=== PATIENT | female | born 1935 | race Caucasian/White ===

== ENCOUNTER 2024-11-23 15:10 | Outpatient (CLI) | payer MEDICARE, SELFPAY ==
[2024-11-23 13:59] LABS: Abs Immature Grans 0.07 10^3/uL (0.0-0.06); Absolute Basophil Count 0.03 10^3/uL (0.0-0.2); Absolute Eosinophil Count 0.08 10^3/uL (0.0-0.7); Absolute Lymphocyte Count 1.24 10^3/uL (1.2-3.4); Absolute Monocyte Count 0.71 10^3/uL (0.1-0.8); Absolute Neutrophil Count 8.46 10^3/uL (1.2-6.7); Basophils % 0.3 %; Eosinophils % 0.8 %; HCT 33.5 % (36.0-46.0); HGB 10.5 g/dL (11.2-15.7); Immature Grans % 0.7 %; Lymphocytes % 11.7 %; MCH 25.7 pg (27.0-33.0); MCHC 31.3 % (32.0-36.0); MCV 82 fL (80-95); MPV 8.5 fL (8.0-11.0); Monocytes % 6.7 %; Neutrophils % 79.8 %; Platelet Count 452 10^3/uL (130-400); RBC 4.08 10^6/uL (3.93-5.22); RDW 14.1 % (11.7-14.6); RDW-SD 41.6 fL; WBC 10.59 10^3/uL (4.4-10.8)
[2024-11-23 14:20] LABS: ALT 14 U/L (14-59); AST 23 U/L (15-37); Albumin 2.3 g/dL (3.4-5.0); Alkaline Phosphatase 81 U/L (46-116); Anion Gap 4.5 mmol/L (3-11); BUN 12 mg/dL (7-18); Bilirubin, Total 0.21 mg/dL (0.2-1.0); CO2 28.5 mmol/L (21.0-32.0); CREATININE 0.9 mg/dL (0.55-1.02); Calcium 8.8 mg/dL (8.5-10.1); Chloride 107 mmol/L (98-107); Estimated GFR 61.87 (mL/min/1.73m2); Glucose 103 mg/dL (74-106); Potassium 4.2 mmol/L (3.5-5.1); Sodium 140 mmol/L (136-145); Total Protein 7.4 g/dL (6.4-8.2)
--- OUTSIDE RECORDS SUMMARY | 2024-11-23 15:20 | XMS_ITS | Continuity of Care Document ---
Author Organization [facility] Address [address] [place] [address] Care Team Providers Care Lease Administration Analyst Name Role Phone Tracie Pandey Primary Care Physician [phone] Kaylee Couch Unavailable Unavailable Encounter [facility] [id number] Date(s): 11/07/24 - 11/07/[address] [address]- Discharge Disposition: Home or Self Care Attending Physician: Sukumar Sam DO Admitting Physician: Sukumar Sam DO Referring Physician: Tracie Pandey Allergies, Adverse Reactions, Alerts Substance Criticality Severity Reaction Reaction Severity Status Latex Unable to assess criticality Unknown Rash Active Assessment and Plan Diagnostic Tests Pending * Surgical Pathology [facility] 11/07/24 Future Scheduled Tests Laboratory* CBC w/ Diff 11/01/24 * ABO/Rh 11/01/24 Functional Status 11/07/24 COVID-19 Screening None Family Member Travel History No recent t ravel Recent Travel History No recent travel Medications Centrum Silver Women 50+ oral tablet 1 tab, Oral, Daily, 0 Refill(s) Start Date: 10/31/24 Status: Ordered docusate sodium 50 mg oral capsule 50 mg = 1 cap, Oral, BID, PRN as needed for constipation, # 180 cap, 0 Refill(s) Start Date: 10/31/24 Status: Ordered Emergen-C 1 tab, Chewed, Daily, 0 Refill(s) Start Date: 10/31/24 Status: Ordered erythromycin 0.5% ophthalmic ointment 1 caro, Eye-Both, QID, # 3.5 g, 0 Refill(s) Start Date: 10/27/24 Stop Date: 11/01/24 Status: Ordered gabapentin 100 mg oral capsule 300 mg = 3 cap, Oral, TID, # 120 cap, 0 Refill(s) Start Date: 10/27/24 Status: Ordered Lidoderm 5% topical film 1 patches, Topical, Daily, remove patches after 12 hours, # 30 patches, 0 Refill(s) Start Date: 10/27/24 Status: Ordered lysine 1000 mg oral tablet 1,000 mg = 1 tab, Oral, Daily, # 60 tab, 0 Refill(s) Start Date: 10/31/24 Status: Ordered MacuHealth MacuHealth, 1 tab, Oral, Daily, 0 Refill(s) Start Date: 10/31/24 Status: Ordered magnesium oxide 400 mg oral capsule 400 mg = 1 cap, Oral, Daily, # 75 cap, 0 Refill(s) Start Date: 10/31/24 Status: Ordered morphine 0.25, Oral, every 4 hr, PRN as needed for pain, 0 Refill(s) Start Date: 10/31/24 Status: Ordered polyethylene glycol 3350 oral powder for reconstitution 17 g, Oral, Daily, # 510 g, 0 Refill(s) Start Date: 10/31/24 Status: Ordered senna 8.6 mg oral tablet 17.2 mg = 2 tab, Oral, every night at bedtime, PRN as needed for constipation, # 20 tab, 0 Refill(s) Start Date: 10/27/24 Status: Ordered Turmeric 500 mg oral capsule 500 mg = 1 cap, Oral, Daily, # 60 cap, 0 Refill(s) Start Date: 10/31/24 Status: Ordered Vitamin D3 125 mcg (5000 intl units) oral tablet, disintegrating 125 mcg = 1 tab, Oral, Daily, 0 Refill(s) Start Date: 10/31/24 Status: Ordered Problem List Condition Confirmation Course Effective Dates Status Health St atus Informant Female bladder prolapse Confirmed Active HTN (hypertension) Confirmed Active Ruptured lumbar disc Confirmed Active Procedures Procedure Date Related Diagnosis Body Site Status Procedure on back 11/21/86 Complet ed Bilateral tubal ligation 11/21/73 Completed Tonsillectomy 11/21/49 Completed Vital Signs Most recent to oldest [Reference Range]: 1 Peripheral Pulse Rate [60-100 bpm] 74 bp m (11/07/24 8:10 AM) Blood Pressure [90-120/60-80 mmHg] 137/6 5mmHg *HI* (11/07/24 8:10 AM) Weight Measured (lbs) 134.989 lb (11/07/24 8:10 AM) Weight Dosing 61.230 kg (11/07/24 8:10 AM) [place] Body Weight Calculated 45.5 kg (11/07/24 8:10 AM) Height/Length Measured (inches) 57.87 in ch (11/07/24 8:10 AM) BSA Measured 1.58 m2 (11/07/24 8:10 AM) Body Mass Index 28.34 kg/m2 (11/07/24 8:10 AM) Height 147 cm (11/07/24 8:10 AM) Weight 61.23 kg (11/07/24 8:10 AM) Social History Social History Type Response Tobacco Never tobacco user T obacco Use:. Sex Female Sex Representation Female (finding) Physician Outpatient Note * Sukumar Sam DO: PERFORM Event Display: Office Clinic Note Physician Authored Date: [id number] FLORA STAPLES :1935 Age:89 years Sex:Female Visit Date:11/07/2024 Primary Care Physician: Tracie Pandey Chief Complaint breast biopsy History of Present Illness Over the past week have had multiple phone conversations with the patient's daughter??about the fungating mass in her mother's right breast.?? I had spoken with radiation oncology as a possibility asan alternative to surgery for this lesion.?? I did this because after getting the CAT scan and discussing it with radiology??their feeling was that??it did go into muscle??and possibly into the bone at 1 point.?? I talked to the radiation oncology who thought that??it would be a good idea to radiate this area.?? The concern was is the patient had refused seeing oncology in the past.?? My feeling was as if she??was going to refuse to see radiation oncology then we should just proceed with surgery but with the realization that we may not be able to get around the tumor??and??that would mean thegraft would not take and she may end up with an open wound.?? After discussing this with the daughter a couple of times we were??under the understanding that we would??proceed with surgery??today??but then the daughter called yesterday after discussing it??with her mother and??thought they would??want to entertain the radiation option.?? I had her come into the office today so I could do a biopsyas radiation oncology said they wanted to have a biopsy done prior to??proceeding??with any treatment. Physical Exam Vitals & Measurements HR:??74??(Peripheral)?? BP:??137/65?? SpO2:??97%?? HT:??147??cm?? WT:??61.23??kg?? BMI:??28.34?? BSA:??1.58?? Again she has the fungating mass with necrotic center??that about the size of a softball on the medial aspect of her right breast.?? I prepped the skin with Betadine along the edge where it appeared that she had viable tissue.?? I anesthetized with 2 cc??of 1% lidocaine and use 11 blade scalpel to take 3 small pieces of tissue in the area and sent it to pathology.?? Bleeders are cauterized and a dressing was placed on top. Assessment/Plan I do think that this would be the best option for treatment.?? Originally I was going to proceed with surgery because she??sounded like she was going to refuse radiation therapy. ??Now she says she is quite happy to go through with radiation. ??As I told her if the radiation does not work then we can certainly do surgery at that point?? if it fails.I will set up the??referral for radiation therapy at [facility] for palliative??therapy.?? Letter??has been sent. Problem List/Past Medical History Ongoing Female bladder prolapse HTN (hypertension) Ruptured lumbar disc Historical No qualifying data Procedure/Surgical History ???Procedure on back (11/22/1986)???Bilateral tubal ligation (11/22/1973)???Tonsillectomy (11/22/1949) Medications Centrum Silver Women 50+ oral tablet, 1 tab, Oral, Daily docusate sodium 50 mg oral capsule, 50 mg= 1 cap, Oral, BID, PRN Emergen-C, 1 tab, Chewed, Daily erythromycin 0.5% ophthalmic ointment, 1 caro, Eye-Both, QID gabapentin 100 mg oral capsule, 300 mg= 3 cap, Oral, TID Lidoderm 5% topical film, 1 patches, Topical, Daily lysine 1000 mg oral tablet, 1000 mg= 1 tab, Oral, Daily MacuHealth, 1 tab, Oral, Daily magnesium oxide 400 mg oral capsule, 400 mg= 1 cap, Oral, Daily morphine, 0.25, Oral, every 4 hr, PRN polyethylene glycol 3350 oral powder for reconstitution, 17 g, Oral, Daily senna 8.6 mg oral tablet, 17.2 mg= 2 tab, Oral, every night at bedtime, PRN Turmeric 500 mg oral capsule, 500 mg= 1 cap, Oral, Daily Vitamin D3 125 mcg (5000 intl units) oral tablet, disintegrating, 125 mcg= 1 tab, Oral, Daily Allergies Latex??(Rash) Social History Alcohol 1-2 times per year Electronic Cigarette/Vaping Electronic Cigarette Use: Never. Substance Use Never Tobacco Never tobacco user Tobacco Use:. Electronically Signed on 11/07/2024 08:58 EST Sukumar Sam DO Patient Care team information Care Team Personnel Name: Tracie Pandey Position: No Access Member Role: Primary Care Physician Address: [address] [place] [address] Name: Kaylee Couch Position: Ambulatory - Trade Clerk Member Role: Trade Clerk Care Team Related Persons Name: HANS WOOD Insurance Providers Guarantor name: FLORA STAPLES Health Plan Information #: 1 Payer: MED[place]ARE [place] Member Number: [id number] Policy Number: NA Health Plan Information #: 2 Payer: MED[place]ARE [place] Member Number: [id number] Policy Number: NA
--- OUTSIDE RECORDS SUMMARY | 2024-11-23 15:20 | XMS_ITS | Encounter Summary ---
Author Organization [facility] Address [facility] [place] [address] Care Team Providers Care Larry Operator Name Role Phone Tracie Pandey APRN Primary Care Provider [phone] Encounter Details Date Type Department Care Team (Late st Contact Info) Description 11/23/2024 Orders Only [place]ology [place] [id number] Freddy Castillo MD [facility] [place] [address] Social History Tobacco Use Types Packs/Day Years Used Date Smoking Tobacco: Never Smokeless Tobacco: Never Alcohol Use Standard Drinks/Week Comments Yes 0 (1 standard drink = 0.6 oz pur e alcohol) 1-2 times/year [facility] Utilities Answer Date Recorded In the past 12 months has th e electric, gas, oil, or water company threatened to shut off services in your home? No 11/20/2024 Hunger Vital Sign Answer Date Recorded Within the past 12 months, y ou worried that your food would run out before you got the money to buy more. Never true 11/20/20 24 Within the past 12 months, t he food you bought just didn't last and you didn't have money to get more. Never true 11/20/2024 PRAPARE - Transportation Answer Date Re corded In the past 12 months, has l ack of transportation kept you from medical appointments or from getting medications? No 10/24 In the past 12 months, has l ack of transportation kept you from meetings, work, or from getting things needed for daily living? No 11/20/2024 Housing Stability Vital Sign Answer Gideon e Recorded In the last 12 months, was t here a time when you were not able to pay the mortgage or rent on time? No 11/20/2024 Number of Times Moved in the Last Year Not on fi le 11/20/2024 At any time in the past 12 m [facility], were you homeless or living in a penitentiary (including now)? No 11/20/2024 Sex and Gender Information Value Date Recorded Sex Assigned at Not on file Gender Identity Not on file Sexual Orientation Not on file documented as of this encounter Plan of Treatment Upcoming Encounters Date Type Department Care Team (Late st Contact Info) Description 11/27/2024 11:00 AM EST Scheduled View Only Radiation Oncology at [address] [phone] 11/28/2024 5:00 PM EST Scheduled View Only Radiation Oncology at [address] [phone] 11/29/2024 5:15 PM EST Scheduled View Only Radiation Oncology at [address] [phone] 11/30/2024 10:30 AM EST Scheduled View Only Radiation Oncology at [address] [phone] 12/01/2024 11:00 AM EST Scheduled View Only Radiation Oncology at [address] [phone] 12/04/2024 5:00 PM EST Scheduled View Only Radiation Oncology at [address] [phone] 12/05/2024 1:30 PM EST Scheduled View Only Radiation Oncology at [address] [phone] 12/06/2024 5:00 PM EST Scheduled View Only Radiation Oncology at [address] [phone] 12/07/2024 4:45 PM EST Scheduled View Only Radiation Oncology at [address] [address] 12/08/2024 5:00 PM EST Scheduled View Only Radiation Oncology at [address] [phone] 12/11/2024 4:45 PM EST Scheduled View Only Radiation Oncology at [address] [phone] 12/12/2024 4:45 PM EST Scheduled View Only Radiation Oncology at [address] [phone] 12/13/2024 4:45 PM EST Scheduled View Only Radiation Oncology at [address] [phone] 12/14/2024 2:30 PM EST Office Visit Hematology/Oncology at [address] [phone] Freddy Castillo MD [facility] [place] [address] 12/14/2024 4:45 PM EST Scheduled View Only Radiation Oncology at [address] [phone] 12/15/2024 1:30 PM EST Scheduled View Only Radiation Oncology at [address] [phone] documented as of this encounter Visit Diagnoses Not on filedocumented in this encounter Care Teams Larry Operator Relationship Specialty Start Date End Date Tracie Pandey APRN [address] [place] [address] PCP - General Family Medicine 08/29/15 documented as of this encounter
--- OUTSIDE RECORDS SUMMARY | 2024-11-23 15:20 | XMS_ITS | Encounter Summary ---
Author Organization [facility] Address [facility] [place] [address] Care Team Providers Care Take Out Waiter/Waitress Name Role Phone Tracie Pandey APRN Primary Care Provider [phone]- [phone] Encounter Details Date Type Department Care Team (Late st Contact Info) Description 11/23/2024 12:00 PM EST Office Visit Hematology/Oncology at [address] [phone] [facility] [address] [place] [address] Arrived Social History Tobacco Use Types Packs/Day Years Used Date Smoking Tobacco: Never Smokeless Tobacco: Never Alcohol Use Standard Drinks/Week Comments Yes 0 (1 standard drink = 0.6 oz pur e alcohol) 1-2 times/year [facility] Utilities Answer Date Recorded In the past 12 months has e electric, gas, oil, or water company [...] any time in the past 12 m onths, were you homeless or living in a correction (including now)? No 11/20/2024 Sex and Gender Information Value Date Recorded Sex Assigned at Not on file Gender Identity Not on file Sexual Orientation Not on file documented as of this encounter Plan of Treatment Upcoming Encounters Date Type Department Care Team (Late st Contact Info) Description 11/27/2024 11:00 AM EST Scheduled View Only Radiation Oncology at [address] [phone] 11/28/2024 5:00 PM EST Scheduled View Only Radiation Oncology at [address] [phone] 11/29/2024 5:15 PM EST Scheduled View Only Radiation Oncology at [address] [phone] 11/30/2024 10:30 AM EST Scheduled View Only Radiation Oncology at [address] [phone] 12/01/2024 11:00 AM EST Scheduled View Only Radiation Oncology at [address] [phone] 12/04/2024 5:00 PM EST Scheduled View Only Radiation Oncology at [address] [phone] 12/05/2024 1:30 PM EST Scheduled View Only Radiation Oncology at [address] [phone] 12/06/2024 5:00 PM EST Scheduled View Only Radiation Oncology at [address] [phone] 12/07/2024 4:45 PM EST Scheduled View Only Radiation Oncology at [address] [phone] 12/08/2024 5:00 PM EST Scheduled View Only Radiation Oncology at [address] [phone] 12/11/2024 4:45 PM EST Scheduled View Only Radiation Oncology at [address] [phone] 12/12/2024 4:45 PM EST Scheduled View Only Radiation Oncology at [address] [phone] 12/13/2024 4:45 PM EST Scheduled View Only Radiation Oncology at [address] [phone] 12/14/2024 2:30 PM EST Office Visit Hematology/Oncology at [address] [phone] Freddy Castillo MD [facility] [place] [address] 12/14/2024 4:45 PM EST Scheduled View Only Radiation Oncology at [address] [phone] 12/15/2024 1:30 PM EST Scheduled View Only Radiation Oncology at [address] [phone] documented as of this encounter Visit Diagnoses Not on filedocumented in this encounter Care Teams Take Out Waiter/Waitress Relationship Specialty Start Date End Date Tracie Pandey APRN [address] [place] [address] PCP - General Family Medicine 08/29/15 documented as of this encounter
--- OUTSIDE RECORDS SUMMARY | 2024-11-23 15:20 | XMS_ITS | Continuity of Care Document ---
Author Organization [facility] Address [address] [place] [address] Care Team Providers Care Laser Beam Machine Operator Name Role Phone Tracie Pandey Primary Care Physician Encounter [facility] [id number] Date(s): 10/31/24 - 10/31/[address] [address]- Encounter Diagnosis Breast cancer, right breast(Discharge Diagnosis) - 10/31/24 Discharge Disposition: Home or Self Care Attending Physician: Sukumar Sam DO Admitting Physician: Sukumar Sam DO Referring Physician: Sukumar Sam DO Allergies, Adverse Reactions, Alerts Substance Criticality Severity Reaction Reaction Severity Status Latex Unable to assess criticality Unknown Rash Active Assessment and Plan Future Appointments Future Scheduled Tests Laboratory* Creatinine 11/01/24 Medications Centrum Silver Women 50+ oral tablet [...] tubal ligation 11/21/73 Completed Tonsillectomy 11/21/49 Completed Results Laboratory List Name Date Basic Metabolic Panel (BMP) 10/31/24 Most recent to oldest [Reference Range]: 1 BUN [8.0-23.0 mg/dL] 13.5 mg/dL (10/31/24 1:20 PM) Glucose Level [70-100 mg/dL] 110 mg/dL *HI* (10/31/24 1:20 PM) Potassium Level [3.5-5.0 mmol/L] 4.3 mmo l/L (10/31/24 1:20 PM) Sodium Level [136-145 mmol/L] 137 mmol/L (10/31/24 1:20 PM) Calcium Level [8.8-10.2 mg/dL] 8.8 mg/dL (10/31/24 1:20 PM) CO2 [22-29 mmol/L] 29 mmol/L (10/31/24 1:20 PM) eGFR Non-AA [>=60 mL/min/1.73 m2] 63 mL/ min/1.73 m2 (10/31/24 1:20 PM) eGFR AA [>=60 mL/min/1.73 m2] 76 mL/min/ 1.73 m2 (10/31/24 1:20 PM) Chloride Level [98-107 mmol/L] 100 mmol/ L (10/31/24 1:20 PM) BUN/Creat Ratio 16 ratio *NA* (10/31/24 1:20 PM) Creatinine Level [0.50-0.90 mg/dL] 0.86 mg/dL (10/31/24 1:20 PM) Anion Gap [5-15 mmol/L] 12 mmol/L (10/31/24 1:20 PM) Radiology Reports * Exam Date Time Procedure Performing Provider Status 10/31/24 2:[address] Chest w/ Contrast Jaz Martin; Alicia (Verified) Notes: (CT Chest w/ Contrast) Reason For Exam: Malignant neoplasm of unspecified site of right female breast CT Chest w/ Contrast EXAMINATION: CT Chest w/ Contrast CLINICAL HISTORY: Malignant neoplasm of unspecified site of right female breast TECHNIQUE: Helical CT of the chest after the intravenous administration of 100 cc of Omnipaque 350. Thin-section reconstructions as well as coronal and sagittal reformatted images were generated. COMPARISON: Right breast ultrasound 03/22/2024. Diagnostic mammogram 03/22/2024. FINDINGS: Pulmonary parenchyma: Lung nodules Airways: No central endobronchial abnormality. Pleura: No effusion or pneumothorax. Lymph nodes: Right axillary lymphadenopathy with largest lymph node measuring 3.9 x 2.4 cm. Left axillary lymphadenopathy with largest lymph node measuring 1.4 cm (series 3, image 17). Additional enlarged lymph nodes also measuring 14 mm (series 3, image 22). Chest wall: Large right breast mass measuring 13.2 x 10.2 x 9 which abuts pectoralis muscles with invasion of the cutaneous surface which contains foci of air. There is skin thickening in the right mid chest which extends inferiorly particularly overlying the right greater than left breasts. There is anasarca. Heart and vasculature: Qualitative left atrial enlargement. There is mild coronary artery calcification. No pericardial effusion. Normal caliber of the thoracic aorta. Other mediastinal structures: No significant findings. Upper abdomen: There is a subcentimeter hypodensity in the liver. Skeletal structures: Diffuse qualitative osteopenia. No suspicious osseous lesions. IMPRESSION: Large right breast mass containing air foci which may be secondary to necrosis and/or recent instrumentation. Bilateral axillary lymphadenopathy. Skin thickening overlying the right greater than left breasts, correlate with direct inspection. I have personally reviewed the image(s) and the resident's interpretation and agree with the findings, Wilian Loo MD at 10/31/2024 3:39 PM Thank you for letting us participate in the care of this patient. If you are a health care provider and have any questions regarding this report, please contact the number below. For patients who have questions please contact the health adult daycare coordinator that requested your imaging first. Final Dictated by: Lolis Arndt Dictated DT/TM: 10/31/2024 3:44 pm Signed by: Lolis Arndt Signed (Electronic Signature): 10/31/2024 2:41 pm Transcribed by: MASTER Social History Social History Type Response Tobacco Never tobacco user T obacco Use:. Sex Female Sex Representation Female (finding) Patient Care team information Care Team Personnel Name: Tracie Pandey Position: No Access Member Role: Primary Care Physician Address: [address] [place] [address] Care Team Related Persons Name: HANS WOOD Insurance Providers Guarantor name: FLORA STAPLES Health Plan Information #: 1 Payer: [employer] Member Number: [id number] Policy Number: NA Health Plan Information #: 2 Payer: [facility] [place] [employer] Member Number: [id number] Policy Number: NA
--- OUTSIDE RECORDS SUMMARY | 2024-11-23 15:20 | XMS_ITS | Encounter Summary ---
[place] [address] Care Team Providers Care Mill Worker Name Role Phone Tracie Pandey APRN Primary Care Provider [phone] Reason for Referral * Consultation (Routine) - Authorized Specialty Diagnoses / Procedures Referred By Contac t Referred To Contact Hematology and Oncology Diagnoses Malignant neoplasm of overlapping sites of breast in female, estrogen receptor negative, unspecified laterality Freddy Castillo MD [facility] [place] [address] [facility] [address] [place] [address] Referral ID Status Reason Start Date Expiration Date Visits Requested Visits Authorized [id number] Authorized Consult, Test & Treat 11/23/2024 11/23/2025 1 1 * Diagnostic Test (Routine) - Authorized Specialty Diagnoses / Procedures Referred By Contac t Referred To Contact Radiology Diagnoses Malignant neoplasm of overlapping sites of breast in female, estrogen receptor negative, unspecified laterality Procedures NM Bone Scan Whole Body Freddy Castillo MD [facility] [place] [address] Referral ID Status Reason Start Date Expiration Date Visits Requested Visits Authorized [id number] Authorized Specialty Service Requested 11/23/2024 05/23/2026 1 1 * Diagnostic Test (Routine) - Authorized Specialty Diagnoses / Procedures Referred By Contac t Referred To Contact Radiology Diagnoses Malignant neoplasm of overlapping sites of breast in female, estrogen receptor negative, unspecified laterality Procedures CT Abdomen & Pelvis wwo Contrast (Generic) Freddy Castillo MD [facility] [place] [address] Referral ID Status Reason Start Date Expiration Date Visits Requested Visits Authorized [id number] Authorized Specialty Service Requested 11/23/2024 05/23/2026 1 1 * Diagnostic Test (Routine) - Authorized Specialty Diagnoses / Procedures Referred By Contac t Referred To Contact Radiology Diagnoses Malignant neoplasm of overlapping sites of breast in female, estrogen receptor negative, unspecified laterality Procedures MRI Brain wwo Contrast (Generic) Freddy Castillo MD [facility] [place] [address] Referral ID Status Reason Start Date Expiration Date Visits Requested Visits Authorized [id number] Authorized Specialty Service Requested 11/23/2024 05/23/2026 1 1 Reason for Visit * Consultation (Routine) - Closed Specialty Diagnoses / Procedures Referred By Contac t Referred To Contact Hematology and Oncology Diagnoses Malignant neoplasm of upper-inner quadrant of right breast in female, estrogen receptor negative Priya Ellsi MD [facility] [place] [place] [address] [facility] [address] [place] [id number] Referral ID Status Reason Start Date Expiration Date V isits Requested Visits Authorized [id number] Closed Consult, Test & Treat 11/20/2024 11/20/2025 1 1 Encounter Details Date Type Department Care Team (Late st Contact Info) Description 11/23/2024 11:00 AM EST Office Visit Hematology/Oncology at [address] [phone] Freddy Castillo MD [facility] [place] [address] Manju Lee, [address] [place] [address] Malignant neoplasm of overlapping sites of breast in female, estrogen receptor negative, unspecified laterality Social History Tobacco Use Types Packs/Day Years Used Date Smoking Tobacco: Never Smokeless Tobacco: Never Alcohol Use Standard Drinks/Week Comments Yes 0 (1 standard drink = 0.6 oz pur e alcohol) 1-2 times/year [facility] Utilities Answer Date Recorded In the past [...] any time in the past 12 m [facility], were you homeless or living in a retirement (including now)? No 11/20/2024 Sex and Gender Information Value Date Recorded Sex Assigned at Not on file Gender Identity Not on file Sexual Orientation Not on file documented as of this encounter Last Filed Vital Signs Vital Sign Reading Time Taken Comments Blood Pressure 158/61 11/23/2024 10:53 AM EST Pulse 76 11/23/2024 10:53 AM EST Temperature 36.1 ??C (96.9 ??F) 11/23/2024 10:[address] Respiratory Rate 20 11/23/2024 10:53 AM EST Oxygen Saturation 100% 11/23/2024 10:53 AM EST Inhaled Oxygen Concentration - - Weight 60.6 kg (133 lb 9.6 oz) 11/23/2024 10:53 AM EST Height 144.8 cm (4' 9) 11/23/2024 10:53 AM EST Body Mass Index 28.91 11/23/2024 10:53 AM EST documented in this encounter Progress Notes * Freddy Castillo MD - 11/23/2024 11:00 AM EST Diagnosis: Right sided locally advanced triple negative breast cancer Chief Complaint: Right sided chest wall discomfort with a pain score of 5-7, ECOG performance status of 1 HPI: Dear colleague, It was my pleasure to see this patient in consultation on the medical oncology- breast service on 23 November 2024. As you recall this delightful 89-year-old female carries a past medical history noteworthy for hypertension. She has a longstanding history of lower back discomfort and is status post surgery to repair a disc. The patient presents with a breast mass that has been in place at least since August 2023. At that juncture she elected to pursue only imaging studies that included mammography and ultrasound revealing the presence of presumptive BI-RADS 5 locally advanced breast cancer. Thepatient's right sided mass lesion is now fungating considerably. [facility] but has since declined to pursue this approach. She would undergo a biopsy of the mass lesion revealing the presence of a triple negative breast cancer. The patient's breast cancer reveals multiple nodules and a large breast mass measuring at least 13.2 x 10.2 x 9 cm in greatest dimension. Imaging studies performed in mid 2023 revealed the mass at that time at approximately 6 cm. The patient reports worsening lumbar sacral spine discomfort she has also had some right lower extremity discomfort. She reports no other soft tissue masses. She denies any cephalgia or changes in visual acuity and no focal or lateralizing signs or symptoms. CT imaging studies of the chest revealed no evid ence of parenchymal pulmonary metastasis. However a small hypoattenuating lesion in the liver was of uncertain significance. The patient is utilizing as needed morphine for pain control which is generally well achieved. Her appetite is fair and she has lost a considerable amount of weight but cannot quantify the same. She rests often but is attempting to conduct her activities of daily living reas onably unencumbered. The mass in the breast is malodorous with significant secretions requiring constant dressing changes. No evidence of cellulitic/soft tissue infection is noted. Patient denies anycough dyspnea or chest discomfort outside of her breast mass. She had not had a mammogram in many years not recalling the last study. She entered menarche at age 14 menopause at approximately 52. Sheutilized oral contraceptive pills for 6 years. She had 7 live births and 3 miscarriages. Her first live was in her early 20s. The patient has what she believes to be perhaps 2 siblings with breast cancer. However the patient's memory is somewhat challenged. She denies any prior history of coronary artery disease or cerebrovascular disease. She has had no hospitalizations in the last 10 years. Interval history: She continues to use oral morphine as well as gabapentin [employer] for pain control.She states that this is generally well achieved. She reports no febrile complaints no shaking rigors or chills. She was seen by the radiation oncology group who have planned a course of palliative radiation to the right breast and chest wall beginning on 27 November 2024. She is seen today in clinic for discussions regarding appropriate directions and potential systemic disease control. PMH: Past Medical History: Diagnosis Date Breast cancer in female Female bladder prolapse HTN (hypertension) RLD (ruptured lumbar disc) Social History: Social History Socioeconomic History Marital status: Unknown Spouse name: Not on file Number of children: Not on file Years of education: Not on file Highest education level: Not on file Occupational History Not on file Tobacco Use Smoking status: Never Smokeless tobacco: Never Vaping Use Vaping status: Never Used Substance and Sexual Activity Alcohol use: Yes Comment: 1-2 times/year Drug use: Never Sexual activity: Not on file Other Topics Concern Not on file Social History Narrative Not on file Social Determinants of Health Financial Resource Strain: Not on file Food Insecurity: No Food Insecurity (11/20/2024) Hunger Vital Sign Worried About Running Out of Food in the Last Year: Never true Ran Out of Food in the Last Year: Never true Transportation Needs: No Transportation Needs (11/20/2024) PRAPARE - Transportation Lack of Transportation (Medical): No Lack of Transportation (Non-Medical): No Physical Activity: Not on file Intimate Partner Violence: Not on file Housing Stability: Unknown (11/20/2024) Housing Stability Vital Sign Unable to Pay for Housing in the Last Year: No Number of Times Moved in the Last Year: Not on file Homeless in the Last Year: No Family History: No family history on file. Allergies: Allergies Allergen Reactions Latex, Natural Rubber Medications: Medications 11/23/24 1116 Medication Sig Taking? docusate sodium (Colace) 50 mg capsule 50 mg 2 times daily as needed for Constipation. Yes gabapentin (Neurontin) 300 mg capsule Take 300 mg by mouth 3 times daily. Yes lidocaine (Lidoderm) 5% Adhesive Patch, Medicated Change on the skin every 24 hours. Apply 1 patch onto the skin daily. (leave on for 12 hours and remove for 12 hours) Yes Lysine 1,000 mg tablet Take by mouth daily. Yes magnesium oxide (Mag-Ox) 400 mg (241.3 mg magnesium) Tablet Take 400 mg by mouth daily. Yes morphine sulfate (MORPHINE ORAL) Take by mouth. Yes polyethylene glycoL (Miralax) 17 gram oral powder packet Take 17 g by mouth daily. Yes senna (Senokot) 8.6 mg tablet Take by mouth daily. Yes cholecalciferoL, Vitamin D3, (Vitamin D3) 125 mcg (5,000 unit) tablet Take by mouth daily. Yes multivitamin (THERAGRAN) Tablet Take 1 tablet by mouth daily. UNABLE TO FIND Emergen-C UNABLE TO FIND daily. [employer] TURMERIC ORAL Take by mouth. Review of Systems: 14 point review of systems is performed pertinent positives and negatives are addressed within the body of the history of present illness Constitutional: HEENT: Eyes: Respiratory: Cardiovascular: Gastrointestinal: Genitourinary: Musculoskeletal: Skin: Neurological: Hematological: Physical examination a generally well-appearing female in good spirits conversant and appropriate during the clinical interview stable vital signs blood pressure 158/61 apical rate 76 respirations 20temperature 36.1 HEENT the pharynx is clear there is no mucositis thrush or petechia neck supple noJVD bruit or thyromegaly chest clear to auscultation bilaterally heart regular rate and rhythm no S3 no wheezes rales or rhonchi abdomen soft nontender no masses no spleen tip no [place] megaly no shifting dullness or fluid wave no guarding or rebound positive bowel sounds in all 4 quadrants extremities no clubbing cyanosis or edema all jamar stations bilateral axillary adenopathy is noted greater than 3 cm on the right. Sclera anicteric palpebral conjunctiva are appropriately injected examinationof the breast bilaterally and chest wall revealed a fungating right sided breast mass with significant induration within the right breast as well as fungating changes nodularity within the skin malodo nahid secretions are also noted. Labs: Appointment on 11/21/2024 Component Date Value Ref Range Status WORKSTATION ID 11/21/2024 [id number] Final Pathology: No results found for: SURGFINALRPT Imaging: CT Rad Onc Chest Interp Only Narrative: EXAMINATION: CT RAD ONC CHEST INTERP ONLY CLINICAL HISTORY: 89 y/o f w/breast ca, R, cT4b cN2a cM1, stage IV. 10 cm ulcerated painful R breast mass. Patient declined surgery. C50.211, Malignant neoplasm of upper-inner quadrant of right female breast TECHNIQUE: Limited CT without the use of oral or IV contrast performed for the purposes of localization for radiation treatment. COMPARISON: Chest CT 10/31/2024 FINDINGS: New packing material with decreased low-attenuation within large ulcerated cavitary right breast mass. Persistent overlying skin thickening and haziness and reticulation in the subcutaneous fat. Stable bilateral axillary lymphadenopathy and subcentimeter supraclavicular lymph nodes. The heart is stable in size. There are coronary artery calcifications. No pericardial effusion. There is diffuse qualitative osteopenia. Impression: Limited CT for radiation planning. New packing material within large ulcerating cavitary right breast mass. Stable axillary lymphadenopathy. Thank you for letting us participate in the care of this patient. If you are a health care provider and have any questions regarding this report, please contact the number below. For patients who have questions please contact the health memory care program director that requested your imaging first. Electronically signed by: Wilian Loo MD, [facility] ([phone]), at 11/21/2024 10:49 AM Impression and plan This delightful 89-year-old female now with at least locally advanced triple negative breast cancer. Today over the course of a 1 hour discussion and examination with the patient and her daughter whowas in attendance I have discussed with them the biology, natural history, staging, genetics as well as appropriate potential directions in care. Given the patient's findings clinically the pursuit of palliative radiation is a reasonable direction of care. I have reviewed with the patient the need to pursue an extent of disease workup. This will include an MRI of the brain, CT of the abdomen and pelvis as well as a bone scan. Indeed the patient's goals of care are to maintain her quality of life and if possible extend her life without experiencing significant amounts of toxicities. For today we will pursue routine hematologic and biochemical assessment, arrange for all imaging to be pursuedfor her staging evaluation. I have also asked the genetics team to contact the patient such that BRCA testing can be pursued. Additionally assessment of the patient's PD-L1 status and CPS score will be required. I discussed with the patient and her daughter the potential for different approaches tosystemic disease control. Should the patient harbor a germline BRCA mutation then an approach with a PARP inhibitor as a single agent would not be unreasonable. In the absence of a BRCA mutation thenconsideration of immunotherapy and or chemotherapy will be discussed based on PD-L1/CPS assessment.Sequentially delivered single agent chemotherapies are tolerated quite well and I believe that the patient has a performance status to pursue this. Taxanes or capecitabine's would not be unreasonablegiven her age and performance status considerations. With positive PD-L1 assessment/CPS scores immunomodulation could be added to her regimen. We will plan on seeing each other again in approximately2 to 3 weeks time she will move forward with palliative radiation. Patient and her daughter have asked appropriate and intelligent questions and I have answered them to their clear satisfaction. Should there be questions regarding her care please feel free to contact me at any time Freddy Castillo MD MPH documented in this encounter Plan of Treatment Upcoming Encounters Date Type Department Care Team (Late st Contact Info) Description 11/27/2024 11:00 AM EST Scheduled View Only Radiation Oncology at [address] [phone] 11/28/2024 5:00 PM EST Scheduled View Only Radiation Oncology at [address] [phone] 11/29/2024 5:15 PM EST Scheduled View Only Radiation Oncology at [address] [phone] 11/30/2024 10:30 AM EST Scheduled View Only Radiation Oncology at [address] [phone] 12/01/2024 11:00 AM EST Scheduled View Only Radiation Oncology at [address] [phone] 12/04/2024 5:00 PM EST Scheduled View Only Radiation Oncology at [address] [phone] 12/05/2024 1:30 PM EST Scheduled View Only Radiation Oncology at [address] [phone] 12/06/2024 5:00 PM EST Scheduled View Only Radiation Oncology at [address] [phone] 12/07/2024 4:45 PM EST Scheduled View Only Radiation Oncology at [address] [phone] 12/08/2024 5:00 PM EST Scheduled View Only Radiation Oncology at [address] [place] [address] 12/11/2024 4:45 PM EST Scheduled View Only Radiation Oncology at [address] [phone] 12/12/2024 4:45 PM EST Scheduled View Only Radiation Oncology at [address] [phone] 12/13/2024 4:45 PM EST Scheduled View Only Radiation Oncology at [address] [phone] 12/14/2024 2:30 PM EST Office Visit Hematology/Oncology at [address] [phone] Freddy Castillo MD [facility] [place] [address] 12/14/2024 4:45 PM EST Scheduled View Only Radiation Oncology at [address] [phone] 12/15/2024 1:30 PM EST Scheduled View Only Radiation Oncology at [address] [phone] Scheduled Orders Name Type Priority Associated Diagnoses Orde r Schedule MRI Brain wwo Contrast (Generic) Imaging Routine Malignant neoplasm of overlapping sites of breast in female, estrogen receptor negative, unspecified laterality Expected: 11/30/2024, Expires: 06/01/2025 CT Abdomen & Pelvis wwo Contrast (Generic) Imaging Routine Malignant neoplasm of overlapping sites of breast in female, estrogen receptor negative, unspecified laterality Expected: 11/30/2024, Expires: 06/01/2025 NM Bone Scan Whole Body Imaging Routine Malignant neoplasm of overlapping sites of breast in female, estrogen receptor negative, unspecified laterality Expected: 11/30/2024, Expires: 06/01/2025 CBC (with Diff) Lab Routine Malignant neoplasm of overlapping sites of breast in female, estrogen receptor negative, unspecified laterality Expected: 11/23/2024, Expires: 05/25/2025 Comprehensive metabolic panel Non-fasting Lab Routine Malignant neoplasm of overlapping sites of breast in female, estrogen receptor negative, unspecified laterality Expected: 11/23/2024, Expires: 05/25/2025 Cancer antigen 15-3 Lab Routine Malignant neoplasm of overlapping sites of breast in female, estrogen receptor negative, unspecified laterality Expected: 11/23/2024, Expires: 05/25/2025 Anatomical Pathology Additional Testing Pathology/Cytolo gy Routine Malignant neoplasm of overlapping sites of breast in female, estrogen receptor negative, unspecified laterality Ordered: 11/23/2024 Scheduled Referrals Name Type Priority Associated Diagnoses Orde r Schedule Referral to Genetics Outpatient Referral Routine Malignant neoplasm of overlapping sites of breast in female, estrogen receptor negative, unspecified laterality Ordered: 11/23/2024 documented as of this encounter Visit Diagnoses Diagnosis Malignant neoplasm of overlapping sites of breast in female, estrogen receptor negative, unspecified laterality documented in this encounter Care Teams Mill Worker Relationship Specialty Start Date End Date Tracie Pandey APRN [address] [place] [address] PCP - General Family Medicine 08/29/15 documented as of this encounter
--- OUTSIDE RECORDS SUMMARY | 2024-11-23 15:20 | XMS_ITS | Continuity of Care Document ---
Author Organization [facility] Address [address] [place] [address] Care Team Providers Care Circuit Rider Name Role Phone Tracie Pandey Primary Care Physician Encounter [facility] [id number] Date(s): 10/27/24 - 10/27/[address] [address] Discharge Disposition: Home or Self Care Attending Physician: Sukumar Sam DO Allergies, Adverse Reactions, Alerts No Known Medication Allergies Functional Status 10/27/24 COVID-19 Screening None Family Member Travel History No recent t ravel Recent Travel History No recent travel Medications erythromycin 0.5% ophthalmic ointment 1 caro, Eye-Both, [...] 0 Refill(s) Start Date: 10/27/24 Status: Ordered senna 8.6 mg oral tablet 17.2 mg = 2 tab, Oral, every night at bedtime, PRN as needed for constipation, # 20 tab, 0 Refill(s) Start Date: 10/27/24 Status: Ordered traMADol 50 mg oral tablet 50 mg = 1 tab, Oral, Daily, 0 Refill(s) Start Date: 10/27/24 Status: Ordered Problem List Condition Confirmation Course Effective Dates Status Health St atus Informant Female bladder prolapse Confirmed Active HTN (hypertension) Confirmed Active Ruptured lumbar disc Confirmed Active Procedures Procedure Date Related Diagnosis Body Site Status Bilateral tubal ligation 11/21/73 Completed Tonsillectomy 11/21/49 Completed Vital Signs Most recent to oldest [Reference Range]: 1 Peripheral Pulse Rate [60-100 bpm] 79 bp m (10/27/24 2:38 PM) Blood Pressure [90-120/60-80 mmHg] 144/6 6mmHg *HI* (10/27/24 2:38 PM) Weight Measured (lbs) 138.009 lb (10/27/24 2:38 PM) Weight Dosing 62.600 kg (10/27/24 2:38 PM) [place] Body Weight Calculated 45.5 kg (10/27/24 2:38 PM) Height/Length Measured (inches) 58 inch (10/27/24 2:38 PM) BSA Measured 1.6 m2 (10/27/24 2:38 PM) Body Mass Index 28.84 kg/m2 (10/27/24 2:38 PM) Height 147.32 cm (10/27/24 2:38 PM) Weight 62.60 kg (10/27/24 2:38 PM) Social History Social History Type Response Tobacco Never tobacco user T obacco Use:. Sex Female Sex Representation Female (finding) Physician Outpatient Note * Sukumar Sam DO: PERFORM Event Display: Office Clinic Note Physician Authored Date: [id number] FLORA STAPLES :1935 Age:89 years Sex:Female Visit Date:10/27/2024 Primary Care Physician: Tracie Pandey Chief Complaint right breast mass History of Present Illness The patient is an 89-year-old white female??who presents to the office??with a large fungating breast mass on the right side.?? This mass was??first visualized??about 9 months ago.?? She had followedup with her primary care but told her that she did not want any treatment for it and so has been managed expectantly with the realization that it??is??a breast cancer.?? By ultrasound and mammogram she does have enlarged lymph nodes in her right axilla??that are concerning for metastatic disease.??In any case the lesion is started to break through the skin and is causing pain and difficulty withwound care so they are wondering about a palliative mastectomy.?? Again she has had no further imaging than what was stated above because again this is??purely palliative??with her having no wish for??curative treatment.?? Other than the pain and difficulty of caring for the??wound,??she also has some enlarged lymph nodes in the right axilla??as described above with some arm swelling and some various discomforts down her right arm.?? She does admit to some mild shortness of breath but she says it is due to pain and difficulty taking a deep breath.?? Otherwise she lives at home and would like to be pain-free while she lives off the rest of her life. Review of Systems She has no heart problems such as heart attacks or chest pain.?? She denies any lung liver or kidney problems.?? Physical Exam Vitals & Measurements HR:??79??(Peripheral)?? BP:??144/66?? SpO2:??98%?? HT:??147.32??cm?? WT:??62.60??kg?? BMI:??28.84?? BSA:??1.6?? Heart is regular. ??Lungs are clear and equal.?? She has no supraclavicular or cervical adenopathy.?? She has palpable lymphadenopathy in her right axilla??but no palpable nodes in her left axilla.??The nodes in her right axilla??are movable although??somewhat matted.?? Her extremity shows maybe some mild??swelling??but??nothing of any great extent.?? Her right breast shows a large fungating mass in the medial??upper quadrant??measuring 10 x 11 cm??with ulceration and foul-smelling discharge.?? The rest of the breast is fairly firm.?? It is seems to be movable from the chest wall for the most part.?? There is no clear cellulitis of the skin.?? There is some small what appear to be satellite lesions on the skin extending out??onto the medial aspect of the left breast and cephalad to the??primary lesion. Assessment/Plan Patient does have??a large breast mass on the right side??with lymph nodes involved in the right axilla.?? I talked with her about this.?? I told her that certainly from a palliative standpoint and not a curative standpoint we could remove the breast??plus or minus the lymph nodes in the right axilla.?? I am not sure if removal of??the lymph nodes?? would help with her arm discomfort.?? I do not see that we are going to be able to remove the lesion in the breast and close the wound and so I told her the best way to close it would be with a split-thickness skin graft.?? We did talk about a muscle??Flap??but I told her that I thought that was much more involved than she probably want to go thr ough.?? I did tell her I would want to get a CAT scan for palliative reasons only preoperatively??of her chest??to see if there is direct extension of this mass??into a large part of muscle or particular bone.?? If there is, we may want to hold off on doing any palliative mastectomy as the recoverymay be??worse??than??the discomfort she has at this point.?She is??going to talk about it over the weekend with her family??and then get back to us.?? Again they understand this is not for curative reasons but for??palliation of symptoms.?? I told her if they had any thoughts of wanting to even attempt??a cure on this??that a full workup starting with oncology and PET scan should be done but they are not interested in that. Problem List/Past Medical History Ongoing Female bladder prolapse HTN (hypertension) Ruptured lumbar disc Historical No qualifying data Procedure/Surgical History ???Bilateral tubal ligation (11/22/1973)???Tonsillectomy (11/22/1949) Medications erythromycin 0.5% ophthalmic ointment, 1 caro, Eye-Both, QID gabapentin 100 mg oral capsule, 300 mg= 3 cap, Oral, TID Lidoderm 5% topical film, 1 patches, Topical, Daily senna 8.6 mg oral tablet, 17.2 mg= 2 tab, Oral, every night at bedtime, PRN traMADol 50 mg oral tablet, 50 mg= 1 tab, Oral, Daily Allergies No Known Medication Allergies Social History Electronic Cigarette/Vaping Electronic Cigarette Use: Never. Tobacco Never tobacco user Tobacco Use:. Electronically Signed on 10/27/2024 16:56 EST Sukumar Sam DO Patient Care team information Care Team Personnel Name: Tracie Pandey Position: No Access Member Role: Primary Care Physician Address: [address] [place] [address] Insurance Providers Guarantor name: FLORA STAPLES Health Plan Information #: 1 Payer: MEDICARE [place] Member Number: [id number] Policy Number: NA Health Plan Information #: 2 Payer: [place]ARE [place] Member Number: [id number] Policy Number: NA
--- OUTSIDE RECORDS SUMMARY | 2024-11-23 15:20 | XMS_ITS | Encounter Summary ---
Author Organization [facility] Address [facility] [place] [address] Care Team Providers Care Line Lead Name Role Phone Tracie Pandey APRN Primary Care Provider [phone] Encounter Details Date Type Department Care Team (Late st Contact Info) Description 11/21/2024 Notes Only Radiation Oncology at [address] [phone] Bharati Kim, [facility] [place] OFFICE OF CARE MANAGEMENT Social History Tobacco Use Types Packs/Day Years Used Date Smoking Tobacco: Never Smokeless Tobacco: Never Alcohol Use Standard Drinks/Week Comments Yes 0 (1 standard drink = 0.6 oz pur e alcohol) 1-2 times/year [facility] Utilities Answer Date Recorded In the [...] any time in the past [address] [facility], were you homeless or living in a fdc (including now)? No 11/20/2024 Sex and Gender Information Value Date Recorded Sex Assigned at Not on file Gender Identity Not on file Sexual Orientation Not on file documented as of this encounter Progress Notes * Bharati Kim, STILL CLEANER - 11/21/2024 9:43 AM EST Reason for Referral: Brief assessment of social and emotional needs. Met with Jovita and her daughter iTffany after her sim today to introduce myself and role of social worker palliative care to assess/address barriers to getting to and through treatments; address support needs and connect with community services and resources as needed. Family/Social Supports: Jovita identified her daughter Tiffany, son in law and granddaughters as her primary support. She also identified a son who is supportive. Her daughter indicated they have a good support system for family and friends. Living Situation/Daily Activities/Transportation: Jovita lives with her daughter Tiffany and has for the last 20 years. She was on Hospice services but came off to pursue further treatments. She is now getting HH services with nursing assisting with wound care and supplies. Jovita is expecting 15 RT treatments. Her daughter will be transporting her. Work/Finances/Insurance: Jovita is retired. She has a limited income from [employer]. She has Medicare A&B listed. Gave them information re [employer] services in case they are interested in looking into financial assistance. Advance Directives: Jovita has completed a [place] advance Directive form. Requested a copy for her record if she wants it on file there. She did bring in a copy of her portable DNR card. Utilization of Community Resources: A services Adjustment to Illness/Mental Health Concerns: Jovita indicated she is coping as best she can. Her daughter described her as tough despite the considerable pain she has been experiencing. They both indicated they have a strong support system of family and friends. Identified Needs: Jovita and her daughter did not identify any specific needs at this time. Referrals: None at this time. Social Work Interventions: Brief assessment Supportive Counseling Advance care planning Patient Financial Assistance/Insurance Plan: Informed pt of [employer] availability and contact information. Will follow to assess/address psychosocial needs. VAHID Castillo, COMMERCIAL CREDIT SPECIALIST, OSW-C CCM-Warping Mill Operator [facility] documented in this encounter Plan of Treatment Upcoming Encounters Date Type Department Care Team (Late st Contact Info) Description 11/27/2024 11:00 AM EST Scheduled View Only Radiation Oncology at [address] [phone] 11/28/2024 5:00 PM EST Scheduled View Only Radiation Oncology at [address] [phone] 11/29/2024 5:15 PM EST Scheduled View Only Radiation Oncology at [address] [phone] 11/30/2024 10:30 AM EST Scheduled View Only Radiation Oncology at [address] [phone] 12/01/2024 11:00 AM EST Scheduled View Only Radiation Oncology at [address] [phone] 12/04/2024 5:00 PM EST Scheduled View Only Radiation Oncology at [address] [phone] 12/05/2024 1:30 PM EST Scheduled View Only Radiation Oncology at [address] [phone] 12/06/2024 5:00 PM EST Scheduled View Only Radiation Oncology at [address] [phone] 12/07/2024 4:45 PM EST Scheduled View Only Radiation Oncology at [address] [phone] 12/08/2024 5:00 PM EST Scheduled View Only Radiation Oncology at [address] [phone] 12/11/2024 4:45 PM EST Scheduled View Only Radiation Oncology at [address] [phone] 12/12/2024 4:45 PM EST Scheduled View Only Radiation Oncology at [address] [phone] 12/13/2024 4:45 PM EST Scheduled View Only Radiation Oncology at [address] [phone] 12/14/2024 2:30 PM EST Office Visit Hematology/Oncology at [address] [phone] Freddy Castillo MD [facility] [place] [address] 12/14/2024 4:45 PM EST Scheduled View Only Radiation Oncology at [address] [phone] 12/15/2024 1:30 PM EST Scheduled View Only Radiation Oncology at [address] [phone] documented as of this encounter Visit Diagnoses Not on filedocumented in this encounter Care Teams Line Lead Relationship Specialty Start Date End Date Tracie Pandey APRN [address] [place] [address] PCP - General Family Medicine 08/29/15 documented as of this encounter
--- OUTSIDE RECORDS SUMMARY | 2024-11-23 15:20 | XMS_ITS | Continuity of Care Document ---
Author Organization [facility] Address [address] [place] [address] Care Team Providers Care Optical Scientist Name Role Phone Tracie Pandey Primary Care Physician [phone] Kaylee Couch Unavailable Unavailable Encounter [facility] [id number] Date(s): 11/10/24 - 11/10/[address] [address]- Discharge Disposition: Home or Self Care Attending Physician: Sukumar Sam DO Admitting Physician: Sukumra Sam DO Referring Physician: Tracie Pandey Allergies, Adverse Reactions, Alerts Substance Criticality Severity Reaction Reaction Severity Status Latex Unable to assess criticality Unknown Rash Active Assessment and Plan Future Scheduled Tests Laboratory* CBC w/ Diff 11/01/24 * ABO/Rh 11/01/24 Medications Centrum Silver Women 50+ oral [...] tubal ligation 11/21/73 Completed Tonsillectomy 11/21/49 Completed Social History Social History Type Response Tobacco Never tobacco user T obacco Use:. Sex Female Sex Representation Female (finding) Patient Care team information Care Team Personnel Name: Tracie Pandey Position: No Access Member Role: Primary Care Physician Address: [address] [place] [address] Name: Kaylee Couch Position: Ambulatory - Forder Operator Member Role: Forder Operator Care Team Related Persons Name: HANS WOOD Insurance Providers Guarantor name: FLORA Dianna [facility] Information #: 1 Payer: [employer] Member Number: [id number] Policy Number: NA Health Plan Information #: 2 Payer: [facility] [place] Member Number: [id number] Policy Number: NA
--- OUTSIDE RECORDS SUMMARY | 2024-11-23 15:20 | XMS_ITS | Continuity of Care Document ---
Author Organization [facility] Address [address] [place] [address] Care Team Providers Care Final Tester Name Role Phone Tracie Pandey Primary Care Physician [phone] Encounter [facility] [id number] Date(s): 10/30/24 - 10/30/[address] [address] Discharge Disposition: Home or Self Care Allergies, Adverse Reactions, Alerts No Known Medication Allergies Assessment and Plan Future Scheduled Tests Laboratory* Basic Metabolic Panel 10/30/24 Radiology* CT Chest w/ Contrast 10/30/24 Medications erythromycin 0.5% ophthalmic ointment 1 caro, [...] Access Member Role: Primary Care Physician Address: [address] [place] [address] Insurance Providers Guarantor name: FLORA Bustamante [facility] Plan Information #: 1 Payer: MEDICARE [place] Member Number: NA Policy Number: NA
--- OUTSIDE RECORDS SUMMARY | 2024-11-23 15:20 | XMS_ITS | Continuity of Care Document ---
Author Organization [facility] Address [address] [place] [address] Care Team Providers Care Small Engine Trainer Name Role Phone Tracie Pandey Primary Care Physician Encounter [facility] [id number] Date(s): 11/03/24 - 11/03/[address] [address]- Discharge Disposition: Home or Self Care Attending Physician: Sukumar Sam DO Admitting Physician: Sukumar Sam DO Referring Physician: Tracie Pandey Allergies, Adverse Reactions, Alerts Substance Criticality Severity Reaction Reaction Severity Status Latex Unable to assess criticality Unknown Rash Active Assessment and Plan Future Appointments Future Scheduled Tests Laboratory* CBC w/ Diff 11/01/24 * ABO/Rh 11/01/24 Functional Status 10/31/24 COVID-19 Screening None Medications Centrum Silver Women 50+ oral tablet [...] Access Member Role: Primary Care Physician Address: [address] [place] [address] Care Team Related Persons Name: HANS WOOD Insurance Providers Guarantor name: FLORA Bustamante [facility] Plan Information #: 2 Payer: [facility] [place] COMMERCIAL [employer] Member Number: NA Policy Number: NA
--- OUTSIDE RECORDS SUMMARY | 2024-11-23 15:20 | XMS_ITS | Encounter Summary ---
Author Organization [facility] Address [facility] [place] [address] Care Team Providers Care Supervisor Refining Name Role Phone Tracie Pandey HANDBOOK WRITER Primary Care Provider [phone]- [phone] Encounter Details Date Type Department Care Team (Latest Contact Info) Description 11/23/2024 Travel Social History Tobacco Use Types Packs/Day Years Used Date Smoking Tobacco: Never Smokeless Tobacco: Never Alcohol Use Standard Drinks/Week Comments Yes 0 (1 standard drink = 0.6 oz pur e alcohol) 1-2 times/year [facility] Utilities Answer Date Recorded In the [...] were you homeless or living in a assisted (including now)? No 11/20/2024 Sex and Gender Information Value Date Recorded Sex Assigned at Not on file Gender Identity Not on file Sexual Orientation Not on file documented as of this encounter Plan of Treatment Upcoming Encounters Date Type Department Care Team (Late st Contact Info) Description 11/27/2024 11:00 AM EST Scheduled View Only Radiation Oncology at [address] [phone] 11/28/2024 5:00 PM EST Scheduled View Only Radiation Oncology at [address] [phone] 11/29/2024 5:15 PM EST Scheduled View Only Radiation Oncology at [address] [phone] 11/30/2024 10:30 AM EST Scheduled View Only Radiation Oncology at [address] [phone] 12/01/2024 11:00 AM EST Scheduled View Only Radiation Oncology at [address] [phone] 12/04/2024 5:00 PM EST Scheduled View Only Radiation Oncology at [address] [phone] 12/05/2024 1:30 PM EST Scheduled View Only Radiation Oncology at [address] [phone] 12/06/2024 5:00 PM EST Scheduled View Only Radiation Oncology at [address] [address] 12/07/2024 4:45 PM EST Scheduled View Only Radiation Oncology at [address] [phone] 12/08/2024 5:00 PM EST Scheduled View Only Radiation Oncology at [address] [phone] 12/11/2024 4:45 PM EST Scheduled View Only Radiation Oncology at [address] [address] 12/12/2024 4:45 PM EST Scheduled View Only Radiation Oncology at [address] [address] 12/13/2024 4:45 PM EST Scheduled View Only Radiation Oncology at [address] [phone] 12/14/2024 2:30 PM EST Office Visit Hematology/Oncology at [address] [phone] Freddy Castillo MD [facility] [place] [address] 12/14/2024 4:45 PM EST Scheduled View Only Radiation Oncology at [address] [address] 12/15/2024 1:30 PM EST Scheduled View Only Radiation Oncology at [address] [phone] documented as of this encounter Visit Diagnoses Not on filedocumented in this encounter Care Teams Supervisor Refining Relationship Specialty Start Date End Date Tracie Pandey APRN [address] [place] [address] PCP - General Family Medicine 08/29/15 documented as of this encounter
--- OUTSIDE RECORDS SUMMARY | 2024-11-23 15:20 | XMS_ITS | Clinical Summary ---
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 Active docusate sodium (Colace) 50 mg capsule 50 mg 2 times daily as needed for Constipation. Active UNABLE TO FIND Emergen-C Active gabapentin (Neurontin) 300 mg capsule Take 300 mg by mouth 3 times daily. Active lidocaine (Lidoderm) 5% Adhesive Patch, Medicated Change on the skin every 24 hours. Apply 1 patch onto the skin daily. (leave on for 12 hours and remove for 12 hours) Active Lysine 1,000 mg tablet Take by mouth daily. Acti ve UNABLE TO FIND daily. [employer] Act tavo magnesium oxide (Mag-Ox) 400 mg (241.3 mg magnesium) Tablet Take 400 mg by mouth daily. Active morphine sulfate (MORPHINE ORAL) Take by mouth. Activ e polyethylene glycoL (Miralax) 17 gram oral powder packet Take 17 g by mouth daily. Active senna (Senokot) 8.6 mg tablet Take by mouth daily. Acti ve TURMERIC ORAL Take by mouth. Active cholecalciferoL, Vitamin D3, (Vitamin D3) 125 mcg (5,000 unit) tablet Take by mouth daily. Ac tive Active Problems No known active problems Encounters Date Type Department Care Team Description 11/23/2024 12:00 PM EST Office Visit Hematology/Oncolo gy at [address] [phone] Arrived 11/23/2024 11:00 AM EST Office Visit Hematology/Oncolo gy at [address] [phone] Freddy Castillo MD [place]re[place], Alexandra H, APRN Malignant neoplasm of overlapping sites of breast in female, estrogen receptor negative, unspecified laterality 11/23/2024 Orders Only [place] [phone] Freddy Castillo MD 11/23/2024 Travel 11/21/2024 8:00 AM EST Ancillary Appointment Radiation Oncology at [address] [phone] Priya Ellis MD Malignant neoplasm of upper-inner quadrant of right breast in female, estrogen receptor negative 11/21/2024 Notes Only Radiation Oncology at [address] [phone] Bharati Kim, NARROW [employer] WEAVER 11/20/2024 9:00 AM EST Office Visit Radiation Oncology at [address] [phone] Priya Ellis MD Malignant neoplasm of upper-inner quadrant of right breast in female, estrogen receptor negative 11/20/2024 Travel 11/08/2024 Transcribe Orders eDH Incoming Referrals [phone] Sukumar Sam DO Malignant neoplasm of right female breast, unspecified estrogen receptor status, unspecified site of breast 11/07/2024 9:55 AM EST Laboratory [place] [phone] 11/07/2024 Lab [place] [phone] Sukumar Sam DO Encounter for other specified special examinations 11/07/2024 Travel 10/31/2024 Interpretation Only [address] [phone] Sukumar Sam, from Last 3 Months Social History Tobacco Use Types Packs/Day Years Used Date Smoking Tobacco: Never Smokeless Tobacco: Never Tobacco Cessation:Counseling Given: Not Answered Alcohol Use Standard Drinks/Week Comments Yes 0 (1 standard drink = 0.6 oz pur e alcohol) 1-2 times/year [facility] Utilities Answer Date Recorded In the [...] any time in the past 12 m [facility], were you homeless or living in a retirement (including now)? No 11/20/2024 Sex and Gender Information Value Date Recorded Sex Assigned at Not on file Gender Identity Not on file Sexual Orientation Not on file Last Filed Vital Signs Vital Sign Reading [...] Mass Index 28.91 11/23/2024 10:53 AM EST Plan of Treatment Upcoming Encounters Date Type Department Care Team (Late st Contact Info) Description 11/27/2024 11:00 AM EST Scheduled View Only Radiation Oncology at [address] [phone] 11/28/2024 5:00 PM EST Scheduled View Only Radiation Oncology at [address] [phone] 11/29/2024 5:15 PM EST Scheduled View Only Radiation Oncology at [address] [phone] 11/30/2024 10:30 AM EST Scheduled View Only Radiation Oncology at [address] [phone] 12/01/2024 11:00 AM EST Scheduled View Only Radiation Oncology at [address] [phone] 12/04/2024 5:00 PM EST Scheduled View Only Radiation Oncology at [address] [phone] 12/05/2024 1:30 PM EST Scheduled View Only Radiation Oncology at [address] [phone] 12/06/2024 5:00 PM EST Scheduled View Only Radiation Oncology at [address] [phone] 12/07/2024 4:45 PM EST Scheduled View Only Radiation Oncology at [address] [phone] 12/08/2024 5:00 PM EST Scheduled View Only Radiation Oncology at [address] [phone] 12/11/2024 4:45 PM EST Scheduled View Only Radiation Oncology at [address] [phone] 12/12/2024 4:45 PM EST Scheduled View Only Radiation Oncology at [address] [phone] 12/13/2024 4:45 PM EST Scheduled View Only Radiation Oncology at [address] [phone] 12/14/2024 2:30 PM EST Office Visit Hematology/Oncology at [address] [phone] Freddy Castillo MD [facility] [place] [address] 12/14/2024 4:45 PM EST Scheduled View Only Radiation Oncology at [address] [address] 12/15/2024 1:30 PM EST Scheduled View Only Radiation Oncology at [address] [phone] Health Maintenance Due Date Last Done Comments Tetanus/Diphtheria/Pertussis Vaccines (1 - Tdap) 03/17 Pneumoccocal Vaccine: 65+ (1 of 1 - PCV) 1987 Zoster vaccine (1 of 2) 1987 Advance Directive 1992 Bone Density Scan 2002 RSV Vaccine (1 - 1-dose 75+ series) 2012 Covid-19 Vaccine ( - season) 2024 Influenza (Flu) vaccine (1 o f 1 - Influenza standard series) 07/23/2024 Procedures Procedure Name Priority Date/Time Associated Diagnosis Comments CT RAD ONC CHEST INTERP ONLY Routine 11/21/2024 9:40 AM EST Malignant neoplasm of upper-inner quadrant of right female breast, unspecified estrogen receptor status SURGICAL PATHOLOGY SCAN 11/09/2024 12:00 AM EST SURGICAL PATHOLOGY (REQ ENTRY) Routine 11/07/2024 8:30 AM EST Encounter for other specified special examinations HER-2 FISH Routine 11/07/2024 8:30 AM EST Encounter for other specified special examinations CT CHEST W CONTRAST STAT 10/31/2024 2:[address] SCAN (SCAN) 10/31/2024 12:00 AM EST from Last 3 Months Results * CT Rad Onc Chest Interp Only (11/21/2024 9:40 AM EST) WORKSTATION ID [id number] RAD Anatomical Region Laterality Modality Chest Computed Tomogra phy Impressions 11/21/2024 10:[address] for radiation planning. New packing material within large ulcerating cavitary right breast mass. Stable axillary lymphadenopathy. Thank you for letting us participate in the care of this patient. ??If you are a health care provider and have any questions regarding this report, please contact the number below. ??For patients who have questions please contact the health insurance healthcare representative that requested your imaging first. ? Narrative 11/21/2024 10:49 AM EST EXAMINATION: CT RAD ONC CHEST INTERP ONLY CLINICAL HISTORY: 89 y/o f w/breast ca, R, cT4b cN2a cM1, stage IV. ??10 cm ulcerated painful R breast mass. ??Patient declined surgery. C50.211, Malignant neoplasm of upper-inner [...] pericardial effusion. There is diffuse qualitative osteopenia. Procedure Note Karina Loo MD - 11/21/2024 EXAMINATION: CT RAD ONC CHEST INTERP ONLY CLINICAL HISTORY: 89 y/o f w/breast ca, R, cT4b cN2a cM1, stage IV. 10cm ulcerated painful R breast mass. Patient declined surgery. C50.211, Malignant neoplasm of upper-inner quadrant of right femalebreast TECHNIQUE: Limited CT without the use of oral or IV contrast performed forthe purposes of localization for radiation treatment. COMPARISON: Chest CT 10/31/2024 FINDINGS: New packing material with decreased low-attenuation within largeulcerated cavitary right breast mass. Persistent overlying skin thickening andhaziness and reticulation in the subcutaneous fat. Stable bilateral axillary lymphadenopathy and subcentimeter supraclavicular lymph nodes. The heart is stable in size. There are coronary artery calcifications.No pericardial effusion. There is diffuse qualitative osteopenia. IMPRESSION Limited CT for radiation planning. New packing material within largeulcerating cavitary right breast mass. Stable axillary lymphadenopathy. Thank you for letting us participate in the care of this patient. If youare a health care provider and have any questions regarding this report,please contact the number below. For patients who have questions please contactthe health insurance healthcare representative that requested your imaging first. Priya Ellis MD IMG OUTSIDE INTERPRE TATION ORDERABLES * Scan Doc: Surgical Pathology (11/09/2024 12:00 AM EST) Narrative 11/09/2024 12:00 AM EST Ordered by an unspecified provider. Scanning Provider MEDIA MGR SCAN EXT O RDR/RSLT * HER-2 FISH (11/07/2024 8:30 AM EST) Pathologist [facility] Indication for Study Breast Cancer 11/10/2024 3:16 PM [facility] Specimen Tissue Case/Block ID [id number] A1 11/10/2024 3:16 PM [facility] HER2 FISH Final Report Method Fluorescence in situ hybridization (FISH) with chromosome 17 centromere (17p11.1-q11.1) probe and a locus specific probe for the HER2 gene locus (17q11.2-q12). 11/10/2024 3:16 PM [facility] HER2/SARITHA FISH Results Negative 11/10/2024 3:16 PM [facility] Total # signals/Total # nuclei counted for HER2 probe 159 11/10/2024 3:16 PM [facility] Total # Signals/Total # Nuclei counted for CEP-17 probe 86 11/10/2024 3:16 PM [facility] HER2 to CEP-17 Ratio (Normal Range <2.0) 1.8 11/10/2024 3:16 PM [facility] Total # Nuclei Counted 40 11/10/2024 3:16 PM [facility] Average # HER2 Signals/Cell 4.0 11/10/2024 3:16 PM [facility] HER2 FISH Interpretation Paraffin-embedded tissue sections were submitted for HER2 (ERBB2) gene amplification analysis by FISH. Direct analysis was performed using the Gabstrion Kit. Slide adequacy and signal enumeration were evaluated and satisfactory for both control and patient slides. A signal ratio derived from the HER2 probe and the CEP-17 centromere probe of greater than or equal to 2.0 is considered positive for HER2 gene amplification. The 2013 ASCO/CAP guideline recommendation for HER2 testing in breast cancer states that samples with a HER2 to CEP-17 ratio of less than 2.0 are non-amplified. Specimens with a HER2 to CEP-17 range of greater than or equal to 2.0 are considered amplified. This test is approved by the U.S. FDA for clinical diagnostic use. Reference: Frederic LUCAS, et al. Recommendations for human epidermal growth factor receptor 2 testing in breast cancer: [place] [employer]/College of [place] [employer] clinical practice guideline update. J Clin Oncol. 2013 Sep 22. Frederic LUCAS, et al. Human Epidermal Growth Factor Receptor 2 Testing in Breast Cancer: [place] [employer] of [employer] Oncology/[employer] of [place] [employer] Clinical Practice Guideline Focused Update. Arch Pathol Lab Med. 2018 April 20/J Clin Oncol. 2017April 20. 11/10/2024 3:16 PM EST [facility] Sign-out by This result has been reviewed by KARINA ROBBINS MD, on 11/10/24 at 3:16 PM. 11/10/2024 3:16 PM EST [facility] Tissue RIGHT BREAST STRUCTURE / Unknown 11/07/2024 8:30 AM EST 11/08/2024 9:14 PM EST Sukumar Sam DO MOLECULAR ORD ERABLES Performing Organization Address City/State/[facility] Co de Phone Number [facility] [place] [address] * (ABNORMAL) Surgical Pathology (Req Entry) (11/07/2024 8:30 AM EST) Case Report Surgical Pathology Report ? Case: [id number] ? Authorizing Provider: ??Sukumar Sam, ??Collected: ? 11/07/2024 0830 ? DO ? Ordering Location: ? Laboratory ? Received: ?11/07/2024 1844 ? Pathologist: ? Morena Espinosa DO ? Specimen: ?Breast, Right, Biopsy Right Breast - Medial ? 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 4 7:04 PM [facility] Discussion The tumor cells are positive for GATA3 and TRPS1 supporting a breast primary. 4 7:04 PM [facility] Additional Studies Immunohistochemistry Studies Estrogen Receptor (ER) immunoreactivity: Negative Progesterone Receptor (GA) immunoreactivity: Negative HER2 immunoreactivity: Equivocal (score 2+) HER2 FISH: separate report to follow Task ID IHC/Special Stains Result A1-3 ER (Clone SP1) Negative A1-4 GA (Clone 16) Negative A1-5 HER2 (Clone 4B5) IHC Equivocal (2+) A1-6 GATA3 Positive A1-7 TRPS1 Positive A1-8 TTF1 Negative A1-9 CK7 Positive A1-10 CK20 Negative A1-11 CDX2 Negative A1-12 PAX-8 Negative 4 7:04 PM [facility] Disclaimer(s) Formalin-fixed, paraffin-embedded tissue sections are studied using the polymer technique with appropriate positive and negative controls. These IHC studies provide the pathologist with adjunctive diagnostic information. Antibody specificity has been verified by testing antibodies on a series of in-house tissues with known immunohistochemical performance characteristics. The clinical interpretation of any antibody positive staining or its absence is evaluated within the context of clinical presentation, morphology, histopathological criteria and other diagnostic tests. *Diagnostic todd for hormone receptors (ASCO/CAP GUIDELINES, 2020): Negative immunoreactivity: <1% tumor cells with immunostaining Positive immunoreactivity: >=1% tumor cells with immunostaining Low Positive: 1-10% tumor cells with immunostaining* *There are limited data on the overall benefit of endocrine therapies for patients with low level (1-10%) ER expression, but they currently suggest possible benefit, so patients are considered eligible for endocrine treatment. There are data that suggest invasive cancers with these results are heterogeneous in both behavior and biology and often have gene expression profiles more similar to ER-negative cancers. [id number] Overexpression Assessment ------- Interpretation Score Criteria ------- Negative (0) No staining observed or membrane staining that is incomplete and is faint/barely perceptible and within <=10% of tumor cells Negative (1+) Incomplete membrane staining that is faint/barely perceptible and within >10% of tumor cells Equivocal (2+) Weak to moderate complete membrane staining observed within >10% of tumor cells Positive (3+) Circumferential membrane staining that is complete, intense, and within >10% of tumor cells Diagnostic categories have been adjusted to reflect treatment guidelines (ASCO/CAP guidelines 2018) Immunohistochemical assays were performed on paraffin-embedded tissue sections fixed in 10% neutral buffered formalin for 6-72 hours using the polymer system technique with appropriate positive and negative controls. The assays were performed according to the deflector operator's instructions using Anti-ER (SP1), Anti-GA (16), and Anti-HER2 (4B5) antibodies. These tests were developed and their performance characteristics determined by [facility]. They may not have been cleared or approved by the US Food and Drug Administration. The FDA does not require such tests to go through premarket FDA review. These tests are used for clinical purposes and should not be regarded as investigational or for research. This laboratory is certified under the Clinical Laboratory Improvement Amendments (CLIA) as qualified to perform high complexity clinical laboratory testing. 4 7:04 PM [facility] Clinical Information Mass medial aspect of right breast. Right breast cancer 4 7:04 PM [facility] Gross Description A. Breast, Right, Biopsy Right Breast - Medial. A - Labeled/Fixative: Right breast, formalin. Quantity/Size: Three, ranging from 0.5 to 1.5 cm Tissue Description: [place] irregular tissue fragments. Sections/Processing: Entirely submitted in 1 cassette labeled A1. Ischemic time: 5 minutes Total fixation time in formalin: 12 hours 25 minutes The ASCO/CAP guideline related to formalin fixation time has been met (6-72 hours). The ASCO/CAP guideline related to cold ischemic time has been met (<1 hour). sns 4 7:04 PM [facility] Result Note THIS RESULT REQUIR ES PHYSICIAN/MARINA FOLLOW UP(A) 4 7:04 PM [facility] Tissue RIGHT BREAST STRUCTURE / Unknown 11/07/2024 8:30 AM EST 11/07/2024 6:44 PM EST Sukumar Sam DO PATHOLOGY/CYT OLOGY ORDERABLES [facility] [place] [address] * CT Chest w Contrast (10/31/2024 2:41 PM EST) PT CLASS O RAD ADMITDTTM [id number] RAD PT RAD MD INFO [id number]^Jerome galo^Sukumar^Santhosh RAD EXAM DESC CTCHW^CT Chest w/ Contrast^RIS RAD WORKSTATION ID [id number] RAD Anatomical Region Laterality Modality Chest Computed Tomogra phy 10/31/2024 2:41 PM EST Impressions 10/31/2024 3:39 PM EST Large right breast mass containing air foci which may be secondary to necrosis and/or recent instrumentation. Bilateral axillary lymphadenopathy. Skin thickening overlying the right greater than left breasts, correlate with direct inspection. I have personally reviewed the image(s) and the resident's interpretation and agree with the findings, Karina Loo MD at 10/31/2024 3:39 PM Thank you for letting us participate in the care of this patient. ??If you are a health care provider and have any questions regarding this report, please contact the number below. ??For patients who have questions please contact the health insurance healthcare representative that requested your imaging first. ? Narrative 10/31/2024 3:39 PM EST EXAMINATION: CT Chest w/ Contrast CLINICAL HISTORY: [...] Diffuse qualitative osteopenia. No suspicious osseous lesions. Procedure Note Karina Loo MD - 10/31/2024 EXAMINATION: CT Chest w/ Contrast CLINICAL HISTORY: Malignant neoplasm of unspecified site of right femalebreast TECHNIQUE: Helical CT of the chest after the intravenous administration of100 cc of Omnipaque 350. Thin-section reconstructions as well as coronal and sagittal reformatted images were generated. COMPARISON: Right breast ultrasound 03/22/2024. Diagnostic mammogram03/22/2024. FINDINGS: Pulmonary parenchyma: Lung nodules Airways: No central endobronchial abnormality. Pleura: No effusion or pneumothorax. Lymph nodes: Right axillary lymphadenopathy with largest lymph nodemeasuring 3.9 x 2.4 cm. Left axillary lymphadenopathy with largest lymph nodemeasuring 1.4 cm (series 3, image 17). Additional enlarged lymph nodes alsomeasuring 14 mm (series 3, image 22). Chest wall: Large right breast mass measuring 13.2 x 10.2 x 9 whichabuts pectoralis muscles with invasion of the cutaneous surface which containsfoci of air. There is skin thickening in the right mid chest which extendsinferiorly particularly overlying the right greater than left breasts. There isanasarca. Heart and vasculature: Qualitative left atrial enlargement. There ismild coronary artery calcification. No pericardial effusion. Normal caliber ofthe thoracic aorta. Other mediastinal structures: No significant findings. Upper abdomen: There is a subcentimeter hypodensity in the liver. Skeletal structures: Diffuse qualitative osteopenia. No suspiciousosseous lesions. IMPRESSION Large right breast mass containing air foci which may be secondary tonecrosis and/or recent instrumentation. Bilateral axillary lymphadenopathy. Skin thickening overlying the right greater than left breasts, correlate withdirect inspection. I have personally reviewed the image(s) and the resident's interpretationand agree with the findings, Karina Loo MD at 10/31/2024 3:39 PM Thank you for letting us participate in the care of this patient. If youare a health care provider and have any questions regarding this report,please contact the number below. For patients who have questions please contactthe health insurance healthcare representative that requested your imaging first. Sukumar Sam DO IMG CT ORDERA BLES * Scan Doc: CT Scan (10/31/2024 12:00 AM EST) Anatomical Region Laterality Modality Other Narrative 10/31/2024 12:00 AM EST Ordered by an unspecified provider. 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
--- OUTSIDE RECORDS SUMMARY | 2024-11-23 15:20 | XMS_ITS | Continuity of Care Document ---
Author Organization [facility] Address [address] [place] [address] Care Team Providers Care Cancer Program Director Name Role Phone Tracie Pandey Primary Care Physician Encounter [facility] [id number] Date(s): 03/22/24 - 03/22/[address] [address]- Discharge Disposition: Home or Self Care Attending Physician: Tracie Pandey Admitting Physician: Tracie Pandey Referring Physician: Tracie Pandey Results Radiology Reports * Exam Date Time Procedure Performing Provider Status 03/22/24 11:13 AM MG Mammo Diagnostic Bilateral w/ Milan. Loan, Sylvie; Auth (Verified) Notes: (MG Mammo Diagnostic Bilateral w/ Milan.) Reason For Exam: Right breast mass, large and hard, in multiple quadrants, from 11 o'clock to 5-6 o'clock. MG Mammo Diagnostic Bilateral w/ Milan. EXAMINATION: MG Mammo Diagnostic Bilateral w/ Milan., US Breast Limited Right. CLINICAL HISTORY: Right breast mass, large and hard, in multiple quadrants, from 11 o'clock to 5-6 o'clock. TECHNIQUE AND VIEWS OBTAINED: CC and MLO views were obtained of BOTH breasts. 2D and 3D tomosynthesis images were obtained. Computer aided detection was used. Diagnostic ultrasound of the right breast followed. COMPARISON: Prior images BREAST DENSITY: The breasts are heterogeneously dense, which may obscure small masses. FINDINGS: Diagnostic mammogram: A large, partially imaged mass in the right breast, 6.6 cm in greatest dimension. 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 Diagnostic ultrasound: A 6.6 cm gently lobulated solid mass in the upper inner quadrant of the right breast. Thickened cortex axillary lymph node measuring up to 16 mm. 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 FINAL ASSESSMENT: BI-RADS Category 5: Highly Suggestive of Malignancy - Appropriate Action Should Be Taken RECOMMENDATION: Tissue diagnosis Thank you for letting us participate in the care of this patient. If you are a health care provider and have any questions regarding this report, please contact the number below. For patients who have questions please contact the health career law clerk that requested your imaging first. Electronically signed by: Darin Reinoso MD, [facility] ([phone]), at 03/22/2024 1:06 PM Assessment - Patient level: 5: Highly suggestive of malignancy Management - Patient level: Tissue diagnosis Final Signed by: Darin Reinoso MD Signed (Electronic Signature): 03/22/2024 11:13 am * Exam Date Time Procedure Performing Provider Status 03/22/24 11:36 AM US Breast Limited Right. Helene Nevarez; Auth (Verified) Notes: (US Breast Limited Right.) Reason For Exam: Right breast mass, large and hard, in multiple quadrants, from 11 o'clock to 5-6 o'clock. US Breast Limited Right. EXAMINATION: MG Mammo Diagnostic Bilateral w/ Milan., US Breast Limited Right. CLINICAL HISTORY: Right breast mass, large and hard, in multiple quadrants, from 11 o'clock to 5-6 o'clock. TECHNIQUE AND VIEWS OBTAINED: CC and MLO views were obtained of BOTH breasts. 2D and 3D tomosynthesis images were obtained. Computer aided detection was used. Diagnostic ultrasound of the right breast followed. COMPARISON: Prior images BREAST DENSITY: The breasts are heterogeneously dense, which may obscure small masses. FINDINGS: Diagnostic mammogram: A large, partially imaged mass in the right breast, 6.6 cm in greatest dimension. 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 Diagnostic ultrasound: A 6.6 cm gently lobulated solid mass in the upper inner quadrant of the right breast. Thickened cortex axillary lymph node measuring up to 16 mm. 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 FINAL ASSESSMENT: BI-RADS Category 5: Highly Suggestive of Malignancy - Appropriate Action Should Be Taken RECOMMENDATION: Tissue diagnosis Thank you for letting us participate in the care of this patient. If you are a health care provider and have any questions regarding this report, please contact the number below. For patients who have questions please contact the health career law clerk that requested your imaging first. Assessment - Patient level: 5: Highly suggestive of malignancy Management - Patient level: Tissue diagnosis Final Signed by: Darin Reinoso MD Signed (Electronic Signature): 03/22/2024 10:41 am Social History Social History Type Response Sex Female Patient Care team information Care Team Personnel Name: Tracie Pandey Position: No Access Member Role: Primary Care Physician Address: Address: [address] [place] [id number]
--- OUTSIDE RECORDS SUMMARY | 2024-11-23 15:21 | XMS_ITS | Encounter Summary ---
Author Organization Replaced By [facility] Address [facility] [place] [address] Care Team Providers Care Senior Director Of Strategy Name Role Phone Tracie Pandey FEED MILLER Primary Care Provider +1- [phone] Encounter Details Date Type Department Care Team (Latest Contact Info) Description 11/20/2024 Travel Social History Tobacco Use Types Packs/Day Years Used Date Smoking Tobacco: Never Smokeless Tobacco: Never Alcohol Use Standard Drinks/Week Comments Yes 0 (1 standard drink = 0.6 oz pur e alcohol) 1-2 times/year [facility] Utilities Answer Date Recorded In the past [...] were you homeless or living in a nursing home (including now)? No 11/20/2024 Sex and Gender Information Value Date Recorded Sex Assigned at Not on file Gender Identity Not on file Sexual Orientation Not on file documented as of this encounter Plan of Treatment Upcoming Encounters Date Type Department Care Team (Late st Contact Info) Description 11/27/2024 11:00 AM EST Scheduled View Only Radiation Oncology at [address] [address] 11/28/2024 5:00 PM EST Scheduled View Only Radiation Oncology at [address] [address] 11/29/2024 5:15 PM EST Scheduled View Only Radiation Oncology at [address] [address] 11/30/2024 10:30 AM EST Scheduled View Only Radiation Oncology at [address] [address] 12/01/2024 11:00 AM EST Scheduled View Only Radiation Oncology at [address] [address] 12/04/2024 5:00 PM EST Scheduled View Only Radiation Oncology at [address] [address] 12/05/2024 1:30 PM EST Scheduled View Only Radiation Oncology at [address] [address] 12/06/2024 5:00 PM EST Scheduled View Only Radiation Oncology at [address] [address] 12/07/2024 4:45 PM EST Scheduled View Only Radiation Oncology at [address] [address] 12/08/2024 5:00 PM EST Scheduled View Only Radiation Oncology at [address] [address] 12/11/2024 4:45 PM EST Scheduled View Only Radiation Oncology at [address] [address] 12/12/2024 4:45 PM EST Scheduled View Only Radiation Oncology at [address] [address] 12/13/2024 4:45 PM EST Scheduled View Only Radiation Oncology at [address] [address] 12/14/2024 2:30 PM EST Office Visit Hematology/Oncology at [address] [address] Freddy Castillo MD [facility] [place] [address] 12/14/2024 4:45 PM EST Scheduled View Only Radiation Oncology at [address] [address] 12/15/2024 1:30 PM EST Scheduled View Only Radiation Oncology at [address] [address] documented as of this encounter Visit Diagnoses Not on filedocumented in this encounter Care Teams Senior Director Of Strategy Relationship Specialty Start Date End Date Traice Pandey APRN [address] [place] [address] PCP - General Family Medicine 08/29/15 documented as of this encounter
--- OUTSIDE RECORDS SUMMARY | 2024-11-23 15:21 | XMS_ITS | Encounter Summary ---
Author Organization [facility] Address [facility] [place] [address] Care Team Providers Care Area Field Person Name Role Phone Tracie Pandey APRN Primary Care Provider +1- [phone] Encounter Details Date Type Department Care Team (Latest Contact Info) Description 11/07/2024 Travel Social History Tobacco Use Types Packs/Day Years Used Date Smoking Tobacco: Never Assessed Sex and Gender Information Value Date Recorded Sex Assigned at Not on file Gender Identity Not on file Sexual Orientation Not on file documented as of this encounter Plan of Treatment Upcoming Encounters Date Type Department Care Team (Late st Contact Info) Description 11/27/2024 11:00 AM EST Scheduled View Only Radiation Oncology at [address] [address] 11/28/2024 5:00 PM EST Scheduled View Only Radiation Oncology at [address] [address] 11/29/2024 5:15 PM EST Scheduled View Only Radiation Oncology at [address] [address] 11/30/2024 10:30 AM EST Scheduled View Only Radiation Oncology at [address] [address] 12/01/2024 11:00 AM EST Scheduled View Only Radiation Oncology at [address] [address] 12/04/2024 5:00 PM EST Scheduled View Only Radiation Oncology at [address] [address] 12/05/2024 1:30 PM EST Scheduled View Only Radiation Oncology at [address] [address] 12/06/2024 5:00 PM EST Scheduled View Only Radiation Oncology at [address] [address] 12/07/2024 4:45 PM EST Scheduled View Only Radiation Oncology at [address] [address] 12/08/2024 5:00 PM EST Scheduled View Only Radiation Oncology at [address] [address] 12/11/2024 4:45 PM EST Scheduled View Only Radiation Oncology at [address] [address] 12/12/2024 4:45 PM EST Scheduled View Only Radiation Oncology at [address] [address] 12/13/2024 4:45 PM EST Scheduled View Only Radiation Oncology at [address] [address] 12/14/2024 2:30 PM EST Office Visit Hematology/Oncology at [address] [address] Freddy Castillo MD [facility] DR MEDICAL ONCOLOGY [place] [id number] 12/14/2024 4:45 PM EST Scheduled View Only Radiation Oncology at [address] [address] 12/15/2024 1:30 PM EST Scheduled View Only Radiation Oncology at [address] [address] documented as of this encounter Visit Diagnoses Not on filedocumented in this encounter Care Teams Area Field Person Relationship Specialty Start Date End Date Tracie Pandey APRN [address] [place] [address] PCP - General Family Medicine 08/29/15 documented as of this encounter
--- OUTSIDE RECORDS SUMMARY | 2024-11-23 15:21 | XMS_ITS | Encounter Summary ---
Author Organization [facility] [place] [address] Care Team Providers Care State Archivist Name Role Phone Tracie Pandey APRN Primary Care Provider +1- [phone] Encounter Details Date Type Department Care Team (Late st Contact Info) Description 03/22/2024 Interpretation Only [address] [address] Tracie Pandey APRN [address] [place] [id number] Social History Tobacco Use Types Packs/Day Years [...] EST Scheduled View Only Radiation Oncology at [address] [address] 11/28/2024 5:00 PM EST Scheduled View Only Radiation Oncology at [address] [address] 11/29/2024 5:15 PM EST Scheduled View Only Radiation Oncology at [address] [address] 11/30/2024 10:30 AM EST Scheduled View Only Radiation Oncology at [address] [address] 12/01/2024 11:00 AM EST Scheduled View Only Radiation Oncology at [address] [address] 12/04/2024 5:00 PM EST Scheduled View Only Radiation Oncology at [address] [address] 12/05/2024 1:30 PM EST Scheduled View Only Radiation Oncology at [address] [address] 12/06/2024 5:00 PM EST Scheduled View Only Radiation Oncology at [address] [address] 12/07/2024 4:45 PM EST Scheduled View Only Radiation Oncology at [address] [address] 12/08/2024 5:00 PM EST Scheduled View Only Radiation Oncology at [address] [address] 12/11/2024 4:45 PM EST Scheduled View Only Radiation Oncology at [address] [address] 12/12/2024 4:45 PM EST Scheduled View Only Radiation Oncology at [address] [address] 12/13/2024 4:45 PM EST Scheduled View Only Radiation Oncology at [address] [address] 12/14/2024 2:30 PM EST Office Visit Hematology/Oncology at [address] [address] Freddy Castillo MD [facility] [place] [address] 12/14/2024 4:45 PM EST Scheduled View Only Radiation Oncology at [address] [address] 12/15/2024 1:30 PM EST Scheduled View Only Radiation Oncology at [address] [address] documented as of this encounter Procedures Procedure Name Priority Date/Time Associated Diagnosis Comments MAMMO DIAGNOSTIC CAD AND MILAN BILATERAL (CH) Routine 03/22/2024 11:13 AM EDT documented in this encounter Results * MAMMO DIAGNOSTIC CAD AND MILAN BILATERAL (CH) (03/22/2024 11:13 AM EDT) PT CLASS O RAD ADMITDTTM [id number] RAD PT RAD INFO [id number]^Boardm an^Tracie RAD EXAM DESC MADDBITOCH^MG Mammo Diagnostic Bilateral w/ Imlan.^RIS RAD WORKSTATION ID RADDRIMAGE RAD Anatomical Region Laterality Modality Other 03/22/2024 11:1 3 AM EDT Impressions 03/22/2024 1:06 PM EDT Large right breast mass with suspected axillary [...] who have questions please contact the health physician primary care sports medicine that requested your imaging first. ? Narrative 03/22/2024 1:06 PM EDT EXAMINATION: MG Mammo Diagnostic Bilateral w/ [place]., US Breast Limited Right. CLINICAL HISTORY: Right breast mass, large and hard, ??in multiple quadrants, from 11 o'clock to 5-6 [...] lymph node measuring up to 16 mm. Procedure Note Darin Reinoso MD - 03/22/2024 EXAMINATION: MG Mammo Diagnostic Bilateral w/ Milan., US Breast LimitedRight. CLINICAL HISTORY: Right breast mass, large and hard, in multiplequadrants, from 11 o'clock to 5-6 o'clock. TECHNIQUE AND VIEWS OBTAINED: CC and MLO views were obtained of BOTH breasts. 2D and 3D tomosynthesisimages were obtained. Computer aided detection was used. Diagnostic ultrasound ofthe right breast followed. COMPARISON: Prior images BREAST DENSITY: The breasts are heterogeneously dense, which may obscure small masses. FINDINGS: Diagnostic mammogram: A large, partially imaged mass in the right breast,6.6 cm in greatest dimension. 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 Diagnostic ultrasound: A 6.6 cm gently lobulated solid mass in the upperinner quadrant of the right breast. Thickened cortex axillary lymph nodemeasuring up to 16 mm. 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 FINAL ASSESSMENT: BI-RADS Category 5: Highly Suggestive of Malignancy - Appropriate ActionShould Be Taken RECOMMENDATION: Tissue diagnosis Thank you for letting us participate in the care of this patient. If youare a health care provider and have any questions regarding this report,please contact the number below. For patients who have questions please contactthe health physician primary care sports medicine that requested your imaging first. Electronically signed by: Darin Reinoso MD, [facility]([phone]), at 03/22/2024 1:06 PM Tracie Pandey APRN PACS IMAGES documented in this encounter Visit Diagnoses Not on filedocumented in this encounter Care Teams State Archivist Relationship Specialty Start Date End Date Tracie Pandey APRN [address] [place] [address] PCP - General Family Medicine 08/29/15 documented as of this encounter
--- OUTSIDE RECORDS SUMMARY | 2024-11-23 15:21 | XMS_ITS | Encounter Summary ---
Author Organization [facility] [place] [address] Care Team Providers Care Film Process Operator Name Role Phone Tracie Pandey APRN Primary Care Provider +1- [phone] Encounter Details Date Type Department Care Team (Late st Contact Info) Description 03/22/2024 Interpretation Only [address] [address] Tracie Pandey APRN [address] [place] [address] Social History Tobacco Use Types Packs/Day Years [...] EST Scheduled View Only Radiation Oncology at [address] [address] 11/28/2024 5:00 PM EST Scheduled View Only Radiation Oncology at [address] [address] 11/29/2024 5:15 PM EST Scheduled View Only Radiation Oncology at [address] [address] 11/30/2024 10:30 AM EST Scheduled View Only Radiation Oncology at [address] [address] 12/01/2024 11:00 AM EST Scheduled View Only Radiation Oncology at [address] [address] 12/04/2024 5:00 PM EST Scheduled View Only Radiation Oncology at [address] [address] 12/05/2024 1:30 PM EST Scheduled View Only Radiation Oncology at [address] [address] 12/06/2024 5:00 PM EST Scheduled View Only Radiation Oncology at [address] [address] 12/07/2024 4:45 PM EST Scheduled View Only Radiation Oncology at [address] [address] 12/08/2024 5:00 PM EST Scheduled View Only Radiation Oncology at [address] [address] 12/11/2024 4:45 PM EST Scheduled View Only Radiation Oncology at [address] [address] 12/12/2024 4:45 PM EST Scheduled View Only Radiation Oncology at [address] [address] 12/13/2024 4:45 PM EST Scheduled View Only Radiation Oncology at [address] [address] 12/14/2024 2:30 PM EST Office Visit Hematology/Oncology at [address] [address] Freddy Castillo MD [facility] [place] [address] 12/14/2024 4:45 PM EST Scheduled View Only Radiation Oncology at [address] [address] 12/15/2024 1:30 PM EST Scheduled View Only Radiation Oncology at [address] [address] documented as of this encounter Procedures Procedure Name Priority Date/Time Associated Diagnosis Comments MAMMO BREAST US LIMITED RIGHT Routine 03/22/2024 11:36 AM EDT documented in this encounter Results * US Breast Limited Right (03/22/2024 11:36 AM EDT) PT CLASS O RAD ADMITDTTM [id number] RAD PT RAD INFO [id number]^Boardm an^Tracie RAD EXAM DESC MAUBRR^US Breast Limited Right.^RIS RAD WORKSTATION ID RADDRIMAGE RAD Anatomical Region Laterality Modality Breast Right Mammography 03/22/2024 10:4 1 AM EDT Impressions 03/22/2024 1:06 PM EDT [...] who have questions please contact the health medicare interviewer that requested your imaging first. ? Narrative [...] patients who have questions please contactthe health medicare interviewer that requested your imaging first. Tracie Pandey APRN IMG MAMMO ORDERABL ES documented in this encounter Visit Diagnoses Not on filedocumented in this encounter Care Teams Film Process Operator Relationship Specialty Start Date End Date Tracie Pandey APRN [address] [place] [address] PCP - General Family Medicine 08/29/15 documented as of this encounter
--- OUTSIDE RECORDS SUMMARY | 2024-11-23 15:21 | XMS_ITS | Encounter Summary ---
Author Organization [facility] Address [facility] [place] [address] Care Team Providers Care Ekg Technician Name Role Phone Tracie Pandey APRN Primary Care Provider [phone]- [phone] Reason for Visit * Consultation (Routine) - Closed Specialty Diagnoses / Procedures Referred By Mariaelena english Referred To Contact Radiation Oncology Diagnoses Malignant neoplasm of upper-inner quadrant of right breast in female, estrogen receptor negative Procedures Simulation for Radiation Therapy Planning Priya Ellis MD [facility] [place] [place] [address] [facility] Rad Onc Office [address] [place] [phone] Referral ID Status Reason Start Date Expiration Date V isits Requested Visits Authorized [id number] Closed Consult, Test & Treat 11/20/2024 11/20/2025 1 1 Encounter Details Date Type Department Care Team (Latest Contact Info) Description 11/21/2024 8:00 AM EST Ancillary Appointment Radiation Oncology at [address] [address] Priya Ellis MD [facility] [address] Malignant neoplasm of upper-inner quadrant of right breast in female, estrogen receptor negative Social History Tobacco Use Types Packs/Day Years Used Date Smoking Tobacco: Never Smokeless Tobacco: Never Alcohol Use Standard Drinks/Week Comments Yes 0 (1 standard drink = 0.6 oz pur e alcohol) 1-2 times/year [facility] Utilities Answer Date Recorded In the past 12 months has th e [employer], [employer], oil, or water [email or web address] threatened to shut off services in your [...] any time in the past 12 m [facility], were you homeless or living in a correction (including now)? No 11/20/2024 Sex and Gender Information Value Date Recorded Sex Assigned at Not on file Gender Identity Not on file Sexual Orientation Not on file documented as of this encounter Patient Instructions * Patient Instructions* Otilia Guan RN - 11/21/2024 8:00 AM EST Information for Patients receiving radiation therapy to the Breast Please remember to stop [employer] during radiation treatments Approximately two weeks after your first treatment, you may begin to experience side effects causedby the radiation. These effects may continue throughout the treatment period and not start improving until 1-2 weeks after treatment is completed. Your doctor will tell you which side effects you aremost likely to experience, when you will notice them and how long they might last. It is important to follow the appropriate instructions to minimize your discomfort. Skin Care Wash skin in the treatment field with lukewarm water and mild or moisturizing, unscented soap daily. Blot skin dry with a soft towel. Do not apply any ointment, salve, deodorant, perfume, cologne, cosmetic or self- remedy to the treatment area while you are undergoing radiation and for 1-2 weeks following treatment. An all natural deodorant with no aluminum can be used if necessary. Moisturizing cream will be provided for you. This may be used in the treatment area once daily beginning on your first treatment day. Do not apply 2 hours before your radiation treatments. As dryness/redness develop you can use this more often. Do not rub or scratch the skin in the treatment field. This includes shaving unless you use an electric razor. If your skin becomes dry or itchy, tell your nurse or doctor. If necessary, your doctor may order a medication specifically for this problem. Do not use hot water bottles, heating lights, electric heating pads, or hot packs to the treatment area. Keep treated areas out of the sun throughout the treatment period. Be careful of sun exposure to the treatment field for one year following treatment. Please use SPF> 30 to all exposed areas of skin and limit sun exposure. Avoid tight fitting clothes. Examine your skin in the treatment area daily and watch for changes. If you cannot reach the whole treatment field ask a family member to look at it and apply cream as needed. Be careful to keep the area under your breast clean and dry as this area can get irritated first. You will meet with your nurse and doctor weekly. They will check your skin and help you with any side effects you are having. Please ask to see the nurse if you have concerns in between these days. During the last weeks of treatment you may notice some peeling of skin and/or a moist reaction. Be sure to let us know if this happens so we can provide you with further skin care instructions.. Continue to stay active, walk daily, eat healthy foods and drink several glasses of water each day. Fatigue You may notice that you feel unusually tired towards the end of treatment. This is not unusual. We recommend that you pace your activities and plan for rest periods to avoid becoming over-tired. Feel free to direct any questions or concerns you may have related to your treatment to your nurse or doctor. [facility] Radiation Oncology Our normal business hours are: Wednesday - Wednesday 8 AM to 5 PM [place], [place], [place] For emergent situations after hours please call for either location and ask for the Radiation Oncologist commissions manager. documented in this encounter Progress Notes * Priya Ellis MD - 11/21/2024 8:00 AM EST Here for sim. Sim: Breast bd immobilization; aquaphor coated gauze into tumor ulcer; wire encircling ulcerated tumor mass & dermal/skin nodules; flat bbs on R breast perimeter; CT through chest; 3D xrt planned. She tolerated sim well, w/o problem. Tx Plan: 3D xrt. Start xrt 11/27/24. Advised to not take supplements including [employer], turmeric & Emergen-C during xrt. Dr. Anna fowler for systemic tx 11/24/24. documented in this encounter Plan of Treatment Upcoming Encounters Date Type Department Care Team (Late st Contact Info) Description 11/27/2024 11:00 AM EST Scheduled View Only Radiation Oncology at [address] [phone] 11/28/2024 5:00 PM EST Scheduled View Only Radiation Oncology at [address] [address] 11/29/2024 5:15 PM EST Scheduled View Only Radiation Oncology at [address] [phone] 11/30/2024 10:30 AM EST Scheduled View Only Radiation Oncology at [address] [address] 12/01/2024 11:00 AM EST Scheduled View Only Radiation Oncology at [address] [address] 12/04/2024 5:00 PM EST Scheduled View Only Radiation Oncology at [address] [address] 12/05/2024 1:30 PM EST Scheduled View Only Radiation Oncology at [address] [address] 12/06/2024 5:00 PM EST Scheduled View Only Radiation Oncology at [address] [address] 12/07/2024 4:45 PM EST Scheduled View Only Radiation Oncology at [address] [address] 12/08/2024 5:00 PM EST Scheduled View Only Radiation Oncology at [address] [address] 12/11/2024 4:45 PM EST Scheduled View Only Radiation Oncology at [address] [address] 12/12/2024 4:45 PM EST Scheduled View Only Radiation Oncology at [address] [address] 12/13/2024 4:45 PM EST Scheduled View Only Radiation Oncology at [address] [address] 12/14/2024 2:30 PM EST Office Visit Hematology/Oncology at [address] [address] Freddy Castillo MD [facility] DR MEDICAL ONCOLOGY [place] [id number] 12/14/2024 4:45 PM EST Scheduled View Only Radiation Oncology at [address] [address] 12/15/2024 1:30 PM EST Scheduled View Only Radiation Oncology at [address] [address] documented as of this encounter Visit Diagnoses Diagnosis Malignant neoplasm of upper-inner quadrant of right breast in female, estrogen receptor negative documented in this encounter Care Teams Ekg Technician Relationship Specialty Start Date End Date Tracie Pandey APRN [address] [place] [address] PCP - General Family Medicine 08/29/15 documented as of this encounter
--- OUTSIDE RECORDS SUMMARY | 2024-11-23 15:21 | XMS_ITS | Encounter Summary ---
Author Organization [facility] Address [facility] [place] [address] Care Team Providers Care Order Dispatcher Chief Name Role Phone PeckTracie whiteside DEDRA Primary Care Provider +1- [phone] Reason for Referral * Consultation (Routine) - Closed Specialty Diagnoses / Procedures Referred By Contac t Referred To Contact Hematology and Oncology Diagnoses Malignant neoplasm of upper-inner quadrant of right breast in female, estrogen receptor negative Priya Ellis MD [facility] [place] [address] [facility] Hem Onc Office [address] [place] [phone] Referral ID Status Reason Start Date Expiration Date V isits Requested Visits Authorized [id number] Closed Consult, Test & Treat 11/20/2024 11/20/2025 1 1 * Consultation (Routine) - Closed Specialty Diagnoses / Procedures Referred By Contac t Referred To Contact Radiation Oncology Diagnoses Malignant neoplasm of upper-inner quadrant of right breast in female, estrogen receptor negative Procedures Simulation for Radiation Therapy Planning Priya Ellis MD [facility] [address] [facility] Rad Onc Office [address] [place] [phone] Referral ID Status Reason Start Date Expiration Date V isits Requested Visits Authorized [id number] Closed Consult, Test & Treat 11/20/2024 11/20/2025 1 1 Reason for Visit * Reason Comments Radiation Consult * Consultation (Urgent) - Authorized Specialty Diagnoses / Procedures Referred By Mariaelena english Referred To Contact Radiation Oncology Diagnoses Malignant neoplasm of right female breast, unspecified estrogen receptor status, unspecified site of breast PALLIATIVE RADIATION RIGHT BREAST, TENDER FUNGATED MASS. FOR SYMPTOM RELEIF. BX DONE 11/07/24. Sukumar Sam, [address] [place] [address] [facility] Rad Onc Office [address] [place] [phone] Referral ID Status Reason Start Date Expiration Date Visits Requested Visits Authorized [id number] Authorized Consult, Test & Treat PCP Updated and/or Approved 11/06/2025 6 6 Encounter Details Date Type Department Care Team (Late st Contact Info) Description 11/20/2024 9:00 AM EST Office Visit Radiation Oncology at [address] [address] Priya Ellis MD [facility] [place] [address] Malignant neoplasm of upper-inner quadrant of right breast in female, estrogen receptor negative Social History Tobacco Use Types Packs/Day Years Used Date Smoking Tobacco: Never Smokeless Tobacco: Never Tobacco Cessation:Counseling Given: Not Answered Alcohol Use Standard Drinks/Week Comments Yes 0 (1 standard drink = 0.6 oz pur e alcohol) 1-2 times/year [facility] Utilities Answer Date Recorded In the past 12 months has e electric, gas, oil, or water company threatened to shut off services in your home? No 11/20/2024 Hunger Vital Sign Answer Date Recorded Within the past 12 months, y ou worried that your food would run out before you got the money to buy more. Never true 11/20/20 Within the past 12 months, t he [...] were you homeless or living in a usp (including now)? No 11/20/2024 Sex and Gender Information Value Date Recorded Sex Assigned at Not on file Gender Identity Not on file Sexual Orientation Not on file documented as of this encounter Last Filed Vital Signs Vital Sign Reading Time Taken Comments Blood Pressure 130/46 11/20/2024 9:37 AM EST Pulse 72 11/20/2024 9:37 AM EST Temperature 36.6 ??C (97.9 ??F) 11/20/2024 9:37 AM ES T Respiratory Rate 18 11/20/2024 9:37 AM EST Oxygen Saturation 97% 11/20/2024 9:37 AM EST Inhaled Oxygen Concentration - - Weight 62.5 kg (137 lb 12.8 oz) 11/20/2024 9:37 AM EST Height - - Body Mass Index - - documented in this encounter Patient Instructions * Patient Instructions* Priya Ellis MD - 11/20/2024 9:00 AM EST Please stop by front office administrator to confirm Ctsimulation appointment for tomorrow. Do not take supplements during radiotherapy. documented in this encounter Plan of Treatment Upcoming Encounters Date Type Department Care Team (Late st Contact Info) Description 11/27/2024 11:00 AM EST Scheduled View Only Radiation Oncology at [address] [phone] 11/28/2024 5:00 PM EST Scheduled View Only Radiation Oncology at [address] [place] [address] 11/29/2024 5:15 PM EST Scheduled View Only Radiation Oncology at [address] [place] [address] 11/30/2024 10:30 AM EST Scheduled View Only Radiation Oncology at [address] [place] [address] 12/01/2024 11:00 AM EST Scheduled View Only Radiation Oncology at [address] [place] [address] 12/04/2024 5:00 PM EST Scheduled View Only Radiation Oncology at [address] [place] [address] 12/05/2024 1:30 PM EST Scheduled View Only Radiation Oncology at [address] [place] [address] 12/06/2024 5:00 PM EST Scheduled View Only Radiation Oncology at [address] [place] [address] 12/07/2024 4:45 PM EST Scheduled View Only Radiation Oncology at [address] [place] [address] 12/08/2024 5:00 PM EST Scheduled View Only Radiation Oncology at [address] [place] [address] 12/11/2024 4:45 PM EST Scheduled View Only Radiation Oncology at [address] [place] [address] 12/12/2024 4:45 PM EST Scheduled View Only Radiation Oncology at [address] [place] [address] 12/13/2024 4:45 PM EST Scheduled View Only Radiation Oncology at [address] [place] [address] 12/14/2024 2:30 PM EST Office Visit Hematology/Oncology at [address] [address] Freddy Castillo MD [facility] [place] [address] 12/14/2024 4:45 PM EST Scheduled View Only Radiation Oncology at [address] [address] 12/15/2024 1:30 PM EST Scheduled View Only Radiation Oncology at [address] [address] Scheduled Orders Name Type Priority Associated Diagnoses Orde r Schedule Simulation for Radiation Therapy Planning Radiation Oncology Routine Malignant neoplasm of upper-inner quadrant of right breast in female, estrogen receptor negative Expected: 11/21/2024, Expires: 05/23/2025 Scheduled Referrals Name Type Priority Associated Diagnoses Order Schedule Referral to Hematology and Oncology Outpatient Referral Routine Malignant neoplasm of upper-inner quadrant of right breast in female, estrogen receptor negative Ordered: 11/20/2024 documented as of this encounter Visit Diagnoses Diagnosis Malignant neoplasm of upper-inner quadrant of right breast in female, estrogen receptor negative documented in this encounter Care Teams Order Dispatcher Chief Relationship Specialty Start Date End Date Tracie Pandey APRN [address] [place] [address] PCP - General Family Medicine 08/29/15 documented as of this encounter
--- OUTSIDE RECORDS SUMMARY | 2024-11-23 15:21 | XMS_ITS | Encounter Summary ---
Author Organization [facility] [place] [address] Care Team Providers Care Truck Sales Representative Name Role Phone Tracie Pandey APRN Primary Care Provider [phone]- [phone] Encounter Details Date Type Department Care Team (Late st Contact Info) Description 11/07/2024 9:55 AM EST Laboratory [place]oint[place] [address] Social History Tobacco Use Types Packs/Day Years [...] EST Scheduled View Only Radiation Oncology at [address] [address] 11/28/2024 5:00 PM EST Scheduled View Only Radiation Oncology at [address] [address] 11/29/2024 5:15 PM EST Scheduled View Only Radiation Oncology at [address] [address] 11/30/2024 10:30 AM EST Scheduled View Only Radiation Oncology at [address] [address] 12/01/2024 11:00 AM EST Scheduled View Only Radiation Oncology at [address] [address] 12/04/2024 5:00 PM EST Scheduled View Only Radiation Oncology at [address] [address] 12/05/2024 1:30 PM EST Scheduled View Only Radiation Oncology at [address] [address] 12/06/2024 5:00 PM EST Scheduled View Only Radiation Oncology at [address] [address] 12/07/2024 4:45 PM EST Scheduled View Only Radiation Oncology at [address] [address] 12/08/2024 5:00 PM EST Scheduled View Only Radiation Oncology at [address] [address] 12/11/2024 4:45 PM EST Scheduled View Only Radiation Oncology at [address] [address] 12/12/2024 4:45 PM EST Scheduled View Only Radiation Oncology at [address] [address] 12/13/2024 4:45 PM EST Scheduled View Only Radiation Oncology at [address] [address] 12/14/2024 2:30 PM EST Office Visit Hematology/Oncology at [address] [address] Freddy Castillo MD [facility] DR [place] [address] 12/14/2024 4:45 PM EST Scheduled View Only Radiation Oncology at [address] [address] 12/15/2024 1:30 PM EST Scheduled View Only Radiation Oncology at [address] [address] documented as of this encounter Visit Diagnoses Not on filedocumented in this encounter Care Teams Truck Sales Representative Relationship Specialty Start Date End Date Tracie Pandey APRN [address] [place], [place] [phone] PCP - General Family Medicine 08/29/15 documented as of this encounter
--- OUTSIDE RECORDS SUMMARY | 2024-11-23 15:21 | XMS_ITS | Encounter Summary ---
Author Organization [facility] Address [facility] [place] [address] Care Team Providers Care Motor Winder Name Role Phone Tracie Pandey APRN Primary Care Provider +1- [phone] Encounter Details Date Type Department Care Team (Late st Contact Info) Description 11/07/2024 [place] [id number] Sukumar Sam, DO [address] [place] [id number] Encounter for other specified special examinations Social History Tobacco Use Types Packs/Day Years [...] EST Scheduled View Only Radiation Oncology at [address] [address] 11/28/2024 5:00 PM EST Scheduled View Only Radiation Oncology at [address] [address] 11/29/2024 5:15 PM EST Scheduled View Only Radiation Oncology at [address] [phone] 11/30/2024 10:30 AM EST Scheduled View Only Radiation Oncology at [address] [address] 12/01/2024 11:00 AM EST Scheduled View Only Radiation Oncology at [address] [address] 12/04/2024 5:00 PM EST Scheduled View Only Radiation Oncology at [address] [address] 12/05/2024 1:30 PM EST Scheduled View Only Radiation Oncology at [address] [address] 12/06/2024 5:00 PM EST Scheduled View Only Radiation Oncology at [address] [address] 12/07/2024 4:45 PM EST Scheduled View Only Radiation Oncology at [address] [address] 12/08/2024 5:00 PM EST Scheduled View Only Radiation Oncology at [address] [address] 12/11/2024 4:45 PM EST Scheduled View Only Radiation Oncology at [address] [address] 12/12/2024 4:45 PM EST Scheduled View Only Radiation Oncology at [address] [address] 12/13/2024 4:45 PM EST Scheduled View Only Radiation Oncology at [address] [address] 12/14/2024 2:30 PM EST Office Visit Hematology/Oncology at [address] [address] Freddy Castillo MD [facility] [place] [address] 12/14/2024 4:45 PM EST Scheduled View Only Radiation Oncology at [address] [address] 12/15/2024 1:30 PM EST Scheduled View Only Radiation Oncology at [address] [address] documented as of this encounter Procedures Procedure Name Priority Date/Time Associated Diagnosis Comments HER-2 FISH Routine 11/07/2024 8:30 AM EST Encounter for other specified special examinations SURGICAL PATHOLOGY (REQ ENTRY) Routine 11/07/2024 8:30 AM EST Encounter for other specified special examinations documented in this encounter Results * HER-2 FISH (11/07/2024 8:30 AM EST) Indication for Study Breast Cancer 11/10/2024 3:16 PM [facility] Specimen Tissue Case/Block ID [id number] A1 11/10/2024 3:16 PM [facility] HER2 FISH Final Report Method Fluorescence in situ hybridization (FISH) with chromosome 17 centromere (17p11.1-q11.1) probe and a locus specific probe for the HER2 gene locus (17q11.2-q12). 11/10/2024 3:16 PM [facility] HER2/SARITHA FISH Results Negative 11/10/2024 3:16 PM [facility] Total # signals/Total # nuclei counted for HER2 probe 159 11/10/2024 3:16 PM [facility] Total # Signals/Total # Nuclei counted for CEP-17 probe 86 11/10/2024 3:16 PM [facility] HER2 to CEP-17 Ratio (Normal Range <2.0) 1.8 11/10/2024 3:16 PM [facility] Total # Nuclei Counted 40 11/10/2024 3:16 PM [facility] Average # HER2 Signals/Cell 4.0 11/10/2024 3:16 PM [facility] HER2 FISH Interpretation Paraffin-embedded tissue sections were submitted for HER2 (ERBB2) gene amplification analysis by FISH. Direct analysis was performed using the Top Hation Kit. Slide adequacy and signal enumeration were [...] FDA for clinical diagnostic use. Reference: Frederic LUCAS et al. Recommendations for human epidermal growth factor receptor 2 testing in breast cancer: [place] Society of Clinical Oncology/College of [place] [employer]ologists clinical practice guideline update. J Clin Oncol. 2013 Sep 22. Frederic LUCAS et al. Human Epidermal Growth Factor Receptor 2 Testing in Breast Cancer: [place] Society of Clinical Oncology/College of [place] [employer] Clinical Practice Guideline Focused Update. Arch Pathol Lab Med. 2017April 20/J Clin Oncol. 2017April 20. 11/10/2024 3:16 PM EST [facility] Sign-out by This result has been reviewed by KARINA ROBBINS MD, on 11/10/24 at 3:16 PM. 11/10/2024 3:16 PM EST [facility] Tissue RIGHT BREAST STRUCTURE / Unknown 11/07/2024 8:30 AM EST 11/08/2024 9:14 PM EST Sukumar Sam DO MOLECULAR ORD ERABLES [facility] [place] [address] * (ABNORMAL) Surgical Pathology (Req Entry) (11/07/2024 8:30 AM EST) Case Report Surgical Pathology Report ? Case: [id number] ? Authorizing Provider: ??Sukumar Sam, ??Collected: ? 11/07/2024 0830 ? DO ? Ordering Location: ? Laboratory ? Received: ?11/07/2024 1844 ? Pathologist: ? Morena Espinosa DO ? Specimen: ?Breast, Right, Biopsy Right Breast - Medial ? 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 4 7:04 PM [facility] Discussion The tumor cells are positive for GATA3 and TRPS1 supporting a breast primary. 4 7:04 PM [facility] Additional Studies Immunohistochemistry Studies Estrogen Receptor (ER) immunoreactivity: Negative Progesterone Receptor (NJ) immunoreactivity: Negative HER2 immunoreactivity: Equivocal (score 2+) HER2 FISH: separate report to follow Task ID IHC/Special Stains Result A1-3 ER (Clone SP1) Negative A1-4 NJ (Clone 16) Negative A1-5 HER2 (Clone 4B5) IHC Equivocal (2+) A1-6 GATA3 Positive A1-7 TRPS1 Positive A1-8 TTF1 Negative A1-9 CK7 Positive A1-10 CK20 Negative A1-11 CDX2 Negative A1-12 PAX-8 Negative 4 7:04 PM [facility] Disclaimer(s) Formalin-fixed, paraffin-embedded tissue sections are [...] expression profiles more similar to ER-negative cancers. [id number] Overexpression Assessment ------- Interpretation Score Criteria ------- [...] The assays were performed according to the rug measurer's instructions using Anti-ER (SP1), Anti-NJ (16), and Anti-HER2 (4B5) antibodies. These tests were developed and their performance characteristics determined by [facility]. They may not have been cleared [...] complexity clinical laboratory testing. 4 7:04 PM [facility] Clinical Information Mass medial aspect of right breast. Right breast cancer 4 7:04 PM [facility] Gross Description A. Breast, Right, Biopsy Right Breast - Medial. A - Labeled/Fixative: Right breast, formalin. Quantity/Size: Three, ranging from 0.5 to 1.5 cm Tissue Description: Tolar irregular tissue fragments. Sections/Processing: Entirely submitted in 1 cassette labeled A1. Ischemic time: 5 minutes Total fixation time in formalin: 12 hours 25 minutes The ASCO/CAP guideline related to formalin fixation time has been met (6-72 hours). The ASCO/CAP guideline related to cold ischemic time has been met (<1 hour). sns 4 7:04 PM [facility] Result Note THIS RESULT REQUIR ES PHYSICIAN/MARINA FOLLOW UP(A) 4 7:04 PM [facility] Tissue RIGHT BREAST STRUCTURE / Unknown 11/07/2024 8:30 AM EST 11/07/2024 6:44 PM EST Sukumar Sam DO PATHOLOGY/CYT OLOGY ORDERABLES [facility] [place] [address] documented in this encounter Visit Diagnoses Diagnosis Encounter for other specified special examinations documented in this encounter Care Teams Motor Winder Relationship Specialty Start Date End Date Tracie Pandey APRN [address] [place] [id number] PCP - General Family Medicine 08/29/15 documented as of this encounter
--- OUTSIDE RECORDS SUMMARY | 2024-11-23 15:21 | XMS_ITS | Encounter Summary ---
Author Organization [facility] Address [facility] [place] [address] Care Team Providers Care Change Control Specialist Name Role Phone Tracie Pandey APRN Primary Care Provider +1- [phone] Reason for Referral * Consultation (Urgent) - Authorized Specialty Diagnoses / Procedures Referred By Mariaelena english Referred To Contact Radiation Oncology Diagnoses Malignant neoplasm of right female breast, unspecified estrogen receptor status, unspecified site of breast PALLIATIVE RADIATION RIGHT BREAST, TENDER FUNGATED MASS. FOR SYMPTOM RELEIF. BX DONE 11/07/24. Sukumar Sam DO [address] [place] [address] [facility] Rad Onc Office [address] [place] [address] Referral ID Status Reason Start Date Expiration Date Visits Requested Visits Authorized [id number] Authorized Consult, Test & Treat PCP Updated and/or Approved 4 11/06/2025 6 6 Encounter Details Date Type Department Care Team (Late st Contact Info) Description 11/08/2024 Transcribe Orders eD Incoming Referrals [phone] Sukumar Sam DO [address] [place] [phone] Malignant neoplasm of right female breast, unspecified estrogen receptor status, unspecified site of breast Social History Tobacco Use Types Packs/Day Years [...] Scheduled View Only Radiation Oncology at [address] [address] 11/28/2024 5:00 PM EST Scheduled View Only Radiation Oncology at [address] [address] 11/29/2024 5:15 PM EST Scheduled View Only Radiation Oncology at [address] [address] 11/30/2024 10:30 AM EST Scheduled View Only Radiation Oncology at [address] [address] 12/01/2024 11:00 AM EST Scheduled View Only Radiation Oncology at [address] [address] 12/04/2024 5:00 PM EST Scheduled View Only Radiation Oncology at [address] [address] 12/05/2024 1:30 PM EST Scheduled View Only Radiation Oncology at [address] [address] 12/06/2024 5:00 PM EST Scheduled View Only Radiation Oncology at [address] [address] 12/07/2024 4:45 PM EST Scheduled View Only Radiation Oncology at [address] [address] 12/08/2024 5:00 PM EST Scheduled View Only Radiation Oncology at [address] [address] 12/11/2024 4:45 PM EST Scheduled View Only Radiation Oncology at [address] [address] 12/12/2024 4:45 PM EST Scheduled View Only Radiation Oncology at [address] [address] 12/13/2024 4:45 PM EST Scheduled View Only Radiation Oncology at [address] [address] 12/14/2024 2:30 PM EST Office Visit Hematology/Oncology at [address] [address] Freddy Castillo MD [facility] [place] [address] 12/14/2024 4:45 PM EST Scheduled View Only Radiation Oncology at [address] [address] 12/15/2024 1:30 PM EST Scheduled View Only Radiation Oncology at [address] [address] Scheduled Referrals Name Type Priority Associated Diagnoses Orde r Schedule Referral to Radiation Oncology Outpatient Referral Urgent Malignant Neoplasm Of Right Female Breast, Unspecified Estrogen Receptor Status, Unspecified Site Of Breast Ordered: 11/08/2024 documented as of this encounter Visit Diagnoses Diagnosis Malignant neoplasm of right female breast, unspecified estrogen receptor status, unspecified site of breast documented in this encounter Care Teams Change Control Specialist Relationship Specialty Start Date End Date Tracie Pandey APRN [address] [place] [address] PCP - General Family Medicine 08/29/15 documented as of this encounter
--- OUTSIDE RECORDS SUMMARY | 2024-11-23 15:21 | XMS_ITS | Encounter Summary ---
Author Organization [facility] [place] [address] Care Team Providers Care Reporting Coordinator Name Role Phone Tracie Pandey APRN Primary Care Provider +1- [phone] Encounter Details Date Type Department Care Team (Late st Contact Info) Description 10/31/2024 Interpretation Only [facility] [address] [place] [address] Sukumar Sam, DO [address] [place] [phone] Social History Tobacco Use Types Packs/Day Years [...] EST Scheduled View Only Radiation Oncology at [address] [address] 11/28/2024 5:00 PM EST Scheduled View Only Radiation Oncology at [address] [address] 11/29/2024 5:15 PM EST Scheduled View Only Radiation Oncology at [address] [address] 11/30/2024 10:30 AM EST Scheduled View Only Radiation Oncology at [address] [address] 12/01/2024 11:00 AM EST Scheduled View Only Radiation Oncology at [address] [address] 12/04/2024 5:00 PM EST Scheduled View Only Radiation Oncology at [address] [address] 12/05/2024 1:30 PM EST Scheduled View Only Radiation Oncology at [address] [address] 12/06/2024 5:00 PM EST Scheduled View Only Radiation Oncology at [address] [address] 12/07/2024 4:45 PM EST Scheduled View Only Radiation Oncology at [address] [address] 12/08/2024 5:00 PM EST Scheduled View Only Radiation Oncology at [address] [address] 12/11/2024 4:45 PM EST Scheduled View Only Radiation Oncology at [address] [address] 12/12/2024 4:45 PM EST Scheduled View Only Radiation Oncology at [address] [place] [address] 12/13/2024 4:45 PM EST Scheduled View Only Radiation Oncology at [address] [address] 12/14/2024 2:30 PM EST Office Visit Hematology/Oncology at [address] [address] Freddy Castillo MD [facility] [place] [address] 12/14/2024 4:45 PM EST Scheduled View Only Radiation Oncology at [address] [address] 12/15/2024 1:30 PM EST Scheduled View Only Radiation Oncology at [address] [phone] documented as of this encounter Procedures Procedure Name Priority Date/Time Associated Diagnosis Comments CT CHEST W CONTRAST STAT 10/31/2024 2 :41 PM EST documented in this encounter Results * CT Chest w Contrast (10/31/2024 2:41 PM EST) PT CLASS O RAD ADMITDTTM [id number] RAD PT RAD MD INFO [id number]^Jerome son^Christopher^S RAD EXAM DESC CTCHW^CT Chest w/ Contrast^[facility] WORKSTATION ID [id number] RAD Anatomical Region Laterality Modality Chest Computed [...] who have questions please contact the health health careers instructor that requested your imaging first. ? Narrative [...] osteopenia. No suspicious osseous lesions. Procedure Note Wilian Loo MD - 10/31/2024 EXAMINATION: CT Chest [...] the resident's interpretationand agree with the findings, Wilian Loo MD at 10/31/2024 3:39 PM Thank you for letting us participate in the care of this patient. If youare a health care provider and have any questions regarding this report,please contact the number below. For patients who have questions please contactthe health health careers instructor that requested your imaging first. Sukumar Sam DO IMG CT ORDERA BLES documented in this encounter Visit Diagnoses Not on filedocumented in this encounter Care Teams Reporting Coordinator Relationship Specialty Start Date End Date Tracie Pandey APRN [address] [place] [address] PCP - General Family Medicine 08/29/15 documented as of this encounter
[2024-11-25 10:57] LABS: Cancer Ag 15-3 47 U/mL (<30)
== END 2024-11-23 15:11 | disposition home or self-care (01) ==
LOC: LBO 15:18
PROVIDERS: Visit Provider Internal Medicine Medical Oncology
DX: C50.819 Malignant neoplasm of overlapping sites of unspecified female breast (principal); Z17.1 Estrogen receptor negative status [ER-]
CPT/HCPCS: 36415; 80053; 86300; 85025

== ENCOUNTER 2025-02-15 02:22 | Outpatient (RCR) | payer MEDICARE, SELFPAY ==
[2025-01-25 13:42] LABS: Abs Immature Grans 0.03 10^3/uL (0.0-0.06); Absolute Basophil Count 0.03 10^3/uL (0.0-0.2); Absolute Eosinophil Count 0.09 10^3/uL (0.0-0.7); Absolute Lymphocyte Count 0.78 10^3/uL (1.2-3.4); Absolute Monocyte Count 0.34 10^3/uL (0.1-0.8); Absolute Neutrophil Count 5.43 10^3/uL (1.2-6.7); Basophils % 0.4 %; Eosinophils % 1.3 %; HCT 35.9 % (36.0-46.0); HGB 11.4 g/dL (11.2-15.7); Immature Grans % 0.4 %; Lymphocytes % 11.6 %; MCH 27.4 pg (27.0-33.0); MCHC 31.8 % (32.0-36.0); MCV 86 fL (80-95); Monocytes % 5.1 %; Neutrophils % 81.2 %; Platelet Count 304 10^3/uL (130-400); RBC 4.16 10^6/uL (3.93-5.22); RDW 18.1 % (11.7-14.6); RDW-SD 57.7 fL
[2025-01-25] MEDS: Normal Saline Flush 10 ML SYR IVP (13:44)
[2025-01-25 14:27] LABS: ALT 29 U/L (14-59); AST 25 U/L (15-37); Albumin 2.9 g/dL (3.4-5.0); Alkaline Phosphatase 91 U/L (46-116); BUN 30 mg/dL (7-18); Bilirubin, Total 0.3 mg/dL (0.2-1.0); CREATININE 0.8 mg/dL (0.55-1.02); Calcium 8.6 mg/dL (8.5-10.1); Chloride 105 mmol/L (98-107); Estimated GFR 71.27 (mL/min/1.73m2); Glucose 99 mg/dL (74-106); Potassium 4.4 mmol/L (3.5-5.1); Sodium 139 mmol/L (136-145); TSH 1.68 uIU/mL (0.36-3.74); Total Protein 7.4 g/dL (6.4-8.2)
[2025-02-15] MEDS: Normal Saline Flush 10 ML SYR IVP (08:00)
[2025-02-15 08:10] LABS: Abs Immature Grans 0.05 10^3/uL (0.0-0.06); Absolute Basophil Count 0.04 10^3/uL (0.0-0.2); Absolute Eosinophil Count 0.31 10^3/uL (0.0-0.7); Absolute Lymphocyte Count 0.66 10^3/uL (1.2-3.4); Absolute Monocyte Count 0.78 10^3/uL (0.1-0.8); Absolute Neutrophil Count 4.47 10^3/uL (1.2-6.7); Basophils % 0.6 %; Eosinophils % 4.9 %; HGB 11.1 g/dL (11.2-15.7); Immature Grans % 0.8 %; Lymphocytes % 10.5 %; MCH 27.4 pg (27.0-33.0); MCHC 31.7 % (32.0-36.0); MCV 86 fL (80-95); MPV 8.5 fL (8.0-11.0); Monocytes % 12.4 %; Neutrophils % 70.8 %; Platelet Count 285 10^3/uL (130-400); RBC 4.05 10^6/uL (3.93-5.22); RDW 18.6 % (11.7-14.6); RDW-SD 57.6 fL; WBC 6.31 10^3/uL (4.4-10.8)
[2025-02-15 08:34] LABS: ALT 33 U/L (14-59); AST 28 U/L (15-37); Albumin 2.6 g/dL (3.4-5.0); Alkaline Phosphatase 104 U/L (46-116); Anion Gap 2.6 mmol/L (3-11); BUN 19 mg/dL (7-18); Bilirubin, Total 0.3 mg/dL (0.2-1.0); CO2 30.4 mmol/L (21.0-32.0); CREATININE 0.8 mg/dL (0.55-1.02); Calcium 8.6 mg/dL (8.5-10.1); Chloride 104 mmol/L (98-107); Estimated GFR 71.27 (mL/min/1.73m2); Glucose 100 mg/dL (74-106); Potassium 4.2 mmol/L (3.5-5.1); Sodium 137 mmol/L (136-145); TSH 1.48 uIU/mL (0.36-3.74); Total Protein 7.1 g/dL (6.4-8.2)
[2025-02-15 13:05] LABS: FREE T4 1.13 ng/dL (0.76-1.46)
== END 2025-02-19 23:59 | disposition home or self-care (01) ==
LOC: INF 02:22
PROVIDERS: Visit Provider Nurse Practitioner Family
DX: C50.819 Malignant neoplasm of overlapping sites of unspecified female breast (principal); Z17.1 Estrogen receptor negative status [ER-]; I10 Essential (primary) hypertension
CPT/HCPCS: 36591; 80053; 84439; 84443; 85025